=== PATIENT | female | born 1985 | race Two or more races ===

== ENCOUNTER → 2020-05-31 16:07 | Outpatient (BNVA) | payer MEDICAID, SELFPAY | PROVIDERS: PCP Internal Medicine Geriatric Medicine; Visit Provider Internal Medicine | DX: J45.909 Unspecified asthma, uncomplicated (principal) | CPT/HCPCS: 99212 ==

== ENCOUNTER → 2020-07-02 10:42 | Outpatient (BNVA) | payer MEDICAID, SELFPAY | PROVIDERS: PCP Internal Medicine Geriatric Medicine; Visit Provider Advanced Practice Midwife ==

== ENCOUNTER 2020-07-19 14:36 | Outpatient (REF) | payer MEDICAID, SELFPAY ==
--- NOTE | ~2020-07-19 | US_ITS ---
EXAMINATION: US PELVIS COMPLETE CLINICAL INFORMATION: Pelvic pain. Right lower quadrant pain. COMPARISON: None TECHNIQUE: Transabdominal and transvaginal ultrasound pelvis is performed. FINDINGS: The uterus is anteverted and retroflexed measuring 8.2 cm in length, 4.9 cm in AP and 5.7 cm in transverse dimension. The endometrial thickness is 0.9 cm. The uterus is heterogeneous in echotexture. IUD was removed 2 years ago. There are several anechoic nabothian cysts seen in the cervix. The right ovary measures 4.1 x 2.1 x 2.2 cm and volume 9.9 mL. There is a corpus luteal cyst measuring 1.5 x 2.1 x 1.9 cm. Previously, the right ovary measured 2.4 x 1.5 x 2.4 cm. The left ovary measures 4.4 x 2.0 x 1.7 cm and volume 7.4 mL. No echogenic foci are seen at this time. Previously, the left ovary measured 4.4 x 2.0 x 2.7 cm. There is moderate free fluid in the cul-de-sac. US/US transvaginal IMPRESSION: Heterogeneous but otherwise unremarkable uterus. Small nabothian cysts seen in the cervix. Right ovarian corpus luteal cyst. Moderate free fluid in the cul-de-sac.
--- NOTE | ~2020-07-19 | US_ITS ---
EXAMINATION: US PELVIS COMPLETE CLINICAL INFORMATION: Pelvic pain. Right lower quadrant pain. COMPARISON: None TECHNIQUE: Transabdominal and transvaginal ultrasound pelvis is performed. FINDINGS: The uterus is anteverted and retroflexed measuring 8.2 cm in length, 4.9 cm in AP and 5.7 cm in transverse dimension. The endometrial thickness is 0.9 cm. The uterus is heterogeneous in echotexture. IUD was removed 2 years ago. There are several anechoic nabothian cysts seen in the cervix. The right ovary measures 4.1 x 2.1 x 2.2 cm and volume 9.9 mL. There is a corpus luteal cyst measuring 1.5 x 2.1 x 1.9 cm. Previously, the right ovary measured 2.4 x 1.5 x 2.4 cm. The left ovary measures 4.4 x 2.0 x 1.7 cm and volume 7.4 mL. No echogenic foci are seen at this time. Previously, the left ovary measured 4.4 x 2.0 x 2.7 cm. There is moderate free fluid in the cul-de-sac. US/US pelvic complete IMPRESSION: Heterogeneous but otherwise unremarkable uterus. Small nabothian cysts seen in the cervix. Right ovarian corpus luteal cyst. Moderate free fluid in the cul-de-sac.
== END 2020-07-19 14:37 | disposition home or self-care (01) ==
LOC: HO.US 14:36
PROVIDERS: Visit Provider Advanced Practice Midwife
DX: R10.2 Pelvic and perineal pain (principal)
CPT/HCPCS: 76830; 76856

== ENCOUNTER → 2020-07-30 11:11 | Outpatient (BNVA) | payer MEDICAID, SELFPAY | PROVIDERS: Visit Provider Advanced Practice Midwife ==

== ENCOUNTER 2020-10-19 14:00 | Outpatient (RCR) | payer MEDICAID, SELFPAY | END 2020-10-26 08:00 | disposition home or self-care (01) | LOC: HO.PT 14:00 | PROVIDERS: PCP Internal Medicine Geriatric Medicine; Visit Provider Advanced Practice Midwife | DX: R10.2 Pelvic and perineal pain (principal); N94.10 Unspecified dyspareunia | CPT/HCPCS: 97110; 97140; 97162; 97530 ==

== ENCOUNTER → 2020-12-16 14:57 | Outpatient (BNVA) | payer MEDICAID, SELFPAY | PROVIDERS: PCP Internal Medicine Geriatric Medicine; Visit Provider Internal Medicine | DX: J45.909 Unspecified asthma, uncomplicated (principal) | CPT/HCPCS: 99212 ==

== ENCOUNTER → 2021-06-22 15:06 | Outpatient (BNVA) | payer MEDICAID, SELFPAY | PROVIDERS: PCP Internal Medicine Geriatric Medicine; Visit Provider Internal Medicine | DX: J45.909 Unspecified asthma, uncomplicated (principal) | CPT/HCPCS: 99212 ==

== ENCOUNTER 2021-07-11 09:31 | Outpatient (REF) | payer MEDICAID, SELFPAY ==
[2021-07-11 15:14] LABS: CT PCR NOT DETECTED (Not Detect.); NG PCR NOT DETECTED (Not Detect.)
[2021-07-11 16:22] LABS: BV Int Neg Control Negative (Negative); BV Int Pos Control Positive (Positive)
== END 2021-07-11 09:32 | disposition home or self-care (01) ==
LOC: HO.LAB 09:31
PROVIDERS: PCP Internal Medicine Geriatric Medicine; Visit Provider Advanced Practice Midwife
DX: R10.2 Pelvic and perineal pain (principal); N94.6 Dysmenorrhea, unspecified; Z20.2 Contact with and (suspected) exposure to infections with a predominantly sexual mode of transmission; R68.82 Decreased libido
CPT/HCPCS: 87480; 87491; 87510; 87591; 87660

== ENCOUNTER 2021-08-02 13:23 | Outpatient (REF) | payer MEDICAID, SELFPAY ==
--- NOTE | ~2021-08-02 | US_ITS ---
EXAMINATION: US PELVIS CLINICAL INFORMATION: Pelvic and perineal pain. COMPARISON: None TECHNIQUE: Ultrasound of the pelvis is performed using both transabdominal and transvaginal transducers along with Doppler. Transvaginal imaging is performed due to inadequate visualization transabdominally. FINDINGS: Uterus: The uterus is anteverted, retroflexed and measures 11.3 cm in length, 4.0 cm in AP, and 5.3 cm in transverse dimension. The double wall endometrial thickness is 0.8 cm. The uterus is limited in visualization due to positioning, however, the uterus appears smooth, homogeneous without focal lesion. There are several nabothian cysts seen. Adnexa: Both ovaries are visualized. There is normal color-flow to the adnexa. There is no ovarian torsion. There is no pelvic ascites or fluid collection. Right ovary measures 3.5 x 2.5 x 3.3 cm and volume 15.1 mL. There is an anechoic cyst measuring 2.9 x 1.8 x 2.3 cm. Left ovary measures 2.9 x 2.1 x 2.3 cm and volume 7.3 mL. [id number] amount of free fluid in the cul-de-sac. US/US pelvic and transvaginal IMPRESSION: Nabothian cysts in the cervix. Uterus with limited visualization but grossly unremarkable. Endometrial thickness is 0.8 cm. Simple cyst right ovary measuring 2.9 cm. Unremarkable left ovary. [id number] amount of free fluid in the cul-de-sac.
== END 2021-08-02 13:24 | disposition home or self-care (01) ==
LOC: HO.US 13:23
PROVIDERS: Visit Provider Advanced Practice Midwife
DX: R10.2 Pelvic and perineal pain (principal)
CPT/HCPCS: 76830; 76856

== ENCOUNTER → 2021-08-16 11:00 | Outpatient (BNVA) | payer MEDICAID, SELFPAY | PROVIDERS: PCP Internal Medicine Geriatric Medicine; Visit Provider Advanced Practice Midwife | DX: Z71.2 Person consulting for explanation of examination or test findings (principal); N83.299 Other ovarian cyst, unspecified side | CPT/HCPCS: 99212 ==

== ENCOUNTER → 2022-01-11 13:15 | Outpatient (BNVA) | payer MEDICAID, SELFPAY | PROVIDERS: PCP Internal Medicine Geriatric Medicine; Visit Provider Internal Medicine | DX: J45.20 Mild intermittent asthma, uncomplicated (principal); J30.9 Allergic rhinitis, unspecified | CPT/HCPCS: 99212 ==

== ENCOUNTER → 2022-07-12 13:27 | Outpatient (BNVA) | payer MEDICAID, SELFPAY | PROVIDERS: PCP Internal Medicine Geriatric Medicine; Visit Provider Internal Medicine | DX: J45.909 Unspecified asthma, uncomplicated (principal) | CPT/HCPCS: 99212 ==

== ENCOUNTER 2022-08-15 10:58 | Outpatient (REF) | payer MEDICAID, SELFPAY ==
[2022-08-16 10:34] LABS: CT PCR NOT DETECTED (Not Detect.); NG PCR NOT DETECTED (Not Detect.)
[2022-08-16 13:05] LABS: BV Int Neg Control Negative (Negative); BV Int Pos Control Positive (Positive)
[2022-08-19 08:54] LABS: HPV mRNA E6/E7 rflx Not Detected (Not Detected)
== END 2022-08-15 10:59 | disposition home or self-care (01) ==
LOC: HO.LNP 10:58
PROVIDERS: PCP Internal Medicine Geriatric Medicine; Visit Provider Advanced Practice Midwife
DX: Z01.419 Encounter for gynecological examination (general) (routine) without abnormal findings (principal); M79.7 Fibromyalgia; Z87.42 Personal history of other diseases of the female genital tract; Z79.899 Other long term (current) drug therapy
CPT/HCPCS: 0353U; 87480; 87510; 87624; 87660; 88142

== ENCOUNTER → 2022-08-25 10:12 | Outpatient (BNVA) | payer MEDICAID, SELFPAY | PROVIDERS: PCP Internal Medicine Geriatric Medicine; Visit Provider Student in an Organized Health Care Education/Training Program | DX: M79.7 Fibromyalgia (principal) | CPT/HCPCS: 99202 ==

== ENCOUNTER 2023-01-17 13:23 | Outpatient (AMB) | payer MEDICAID, SELFPAY ==
[2023-01-17 13:30] VITALS: BP 122/68; PULSE 86; O2SAT 96; BMI 30.1
--- NOTE | 2023-01-17 13:30 | A.OFFVIS_ITS ---
Intake Vital Signs 01/17/23 13:30 Height 5 ft 3 in Weight 170 lb BMI 30.1 BP 122/68 Blood Pressure Location Lt brachial Position Sitting Pulse 86 Pulse Source Pulse Oximeter Pulse Oximetry (%) 96 Oxygen Delivery Method Room Air Intake Visit Reasons: Asthma Intake Note: pt is here for follow up and states she is doing good, no asthma issue, just a l ot of allergies and stuffy nose Metal Cutter Required: No Allergies aspirin Allergy (Severe, Verified 01/17/23 13:41) hives penicillin V Allergy (Severe, Verified 01/17/23 13:41) anaphylaxis, anaphylaxis, rash vancomycin Allergy (Severe, Verified 01/17/23 13:41) anaphylaxis Medication List - Last Reconciled 01/17/23 by Sherice Martin MD albuterol sulfate 2.5 mg (3 mL) inhalation Q6H PRN albuterol sulfate 90 mcg/actuation (Ventolin HFA) 2 puffs inhalation Q4-6H PRN cetirizine (Zyrtec) 10 mg PO DAILY PRN cholecalciferol (vitamin D3) 25 mcg PO DAILY duloxetine (Cymbalta) 60 mg PO BID fluticasone propion-salmeterol 250-50 mcg/dose (Advair Diskus) 1 ea PO BID fluticasone propionate 50 mcg/actuation 2 sprays intranasal DAILY ipratropium bromide 2 sprays intranasal TID montelukast 10 mg PO BEDTIME norethindrone (contraceptive) 0.35 mg PO DAILY pregabalin 150 mg PO TID sumatriptan succinate 0 mg PO trazodone 50 mg PO BEDTIME PRN Do you need a note to return to daycare/school/sports/work: No HPI Asthma HPI Details 37 years old very pleasant female is here for her 6 months follow-up. She is afflicted with allergic rhinitis is around the year, with intermittent flare ups. With the current medical regimen it is somewhat under control. Also has chronic bronchial asthma, controlled with medium dose of Advair ( 250- 50 ) She has had no acute exacerbation. However if she does not use the Advair regularly then she starts having tight feeling in the chest and increased cough. [facility] Medical History Allergic rhinitis Asthma Migraine with aura Simple cystoma of ovary Surgical History Hx of section Social History Alcohol intake: never Patient Tobacco Use Status: Never used Tobacco Sexual orientation: Straight/Heterosexual Female Reproductive History Menstrual Age of Menarche: 13 Review of Systems Const All systems reviewed & are unremarkable except as noted in HPI and below Eyes Reports no additional complaints ENT Reports nasal congestion (Mild and controlled) Card Denies chest pain, Denies irregular heart rhythm and Denies leg edema Resp Reports as per HPI and Reports no additional complaints GI Reports no additional complaints Reports no additional complaints Musc Reports back pain and Reports arthralgias Skin/Breast Reports system reviewed and no additional complaints, except as documented Neuro Reports no additional complaints Psych Reports no additional complaints Endo Reports no additional complaints Leo/Lymph Reports no additional complaints Physical Exam Vital Signs: Last Vital Signs Pulse 86 01/17/23 13:30 BP 122/68 01/17/23 13:30 Pulse Ox 96 01/17/23 13:30 Oxygen Delivery Method Room Air 01/17/23 13:30 BMI result Body Mass Index 30.1 Const General: healthy appearing, comfortable, no acute distress, alert and awake Orientation/consciousness: patient oriented x3 HEENT Head: Yes normal to inspection General nose exam: No nasal polyps present, No nasal discharge present and Other nasal findings present (Only mild bilateral nasal congestion) Face and sinus: Yes sinuses nontender Mouth: oropharynx normal Throat: Yes posterior oropharynx normal Eyes General: appearance normal, both eyes and all related structures Neck Neck: Yes normal visual inspection, Yes no lymphadenopathy, Yes trachea midline and Yes no JVD Thyroid: Thyroid normal Chest Chest palpation & inspection: normal inspection of the chest, normal palpation of entire chest wall and no tenderness Resp Effort & Inspection: normal respiratory effort Auscultation: clear to auscultation bilaterally, no crackles and no wheezes Percussion: percussion normal Cardio Palpation: normal PMI Rate: regular rate Rhythm: regular rhythm Heart sounds: no gallops and no murmurs Peripheral pulses: Peripheral pulses 2+ throughout GI Palpation (GI): Soft to palpation, nontender, No hepatosplenomegaly present and no masses Auscultation: normal bowel sounds Back/Spine/Pelvis Thoracic/Lumbar Spine: thoracic and lumbar spine normal to inspection and thoraco-lumbar ROM limited Skin General skin exam: no rashes or lesions noted Neuro General: patient oriented x3 and no focal motor deficits Cranial nerves: Yes CN's II-XII intact bilaterally Extrem General: Yes normal to inspection, Yes no clubbing, cyanosis or edema, Yes no calf tenderness and Yes normal gait Psych Appearance: grossly normal and well kempt Speech and movement: Normal speech and movement present Assessment & Plan Assessment & Plan (1) Allergic rhinitis: Comment: She has chronic nasal allergies, around the year, worse in the summer months. At present she is having some flare of because she was out of meds. [place] : Continue Flonase 2 spray each nostril daily Zyrtec 10 mg once a day p.r.n. Montelukast 10 mg daily. Code(s): J30.9 - Allergic rhinitis, unspecified (2) Asthma: Comment: Chronic intermittent bronchial asthma well controlled, She does have history of seasonal flare up, mainly due to allergies. Seems well controlled with the current medical regimen. tx : Advair 250-50 1 inhalation b.i.d. Montelukast 10 mg daily Ventolin 2 puffs Q 6 hours p.r.n.. Code(s): J45.909 - Unspecified asthma, uncomplicated Coding Level of Care Code Est Pt Level 3 (62221) Diagnoses Allergic rhinitis J30.9 Asthma J45.909
== END 2023-01-17 13:48 | disposition home or self-care (01) ==
PROVIDERS: PCP Internal Medicine Geriatric Medicine; Visit Provider Internal Medicine
DX: J30.9 Allergic rhinitis, unspecified (principal); J45.909 Unspecified asthma, uncomplicated
CPT/HCPCS: 99213

== ENCOUNTER → 2023-01-17 13:23 | Outpatient (BNVA) | payer MEDICAID, SELFPAY | PROVIDERS: PCP Internal Medicine Geriatric Medicine; Visit Provider Internal Medicine | DX: J45.909 Unspecified asthma, uncomplicated (principal) | CPT/HCPCS: 99212 ==

== ENCOUNTER 2023-07-18 13:32 | Outpatient (AMB) | payer MEDICAID, SELFPAY ==
--- NOTE | 2023-07-18 13:35 | A.OFFVIS_ITS ---
Intake Vital Signs 07/18/23 13:37 Height 5 ft 3 in Weight 165 lb 5 oz BMI 29.3 BP 118/76 Blood Pressure Location Lt brachial Position Sitting Respiration 16 Pulse 78 Pulse Source Pulse Oximeter Pulse Oximetry (%) 98 Oxygen Delivery Method Room Air Intake Visit Reasons: Asthma Allergies aspirin Allergy (Severe, Verified 01/17/23 13:41) hives penicillin V Allergy (Severe, Verified 01/17/23 13:41) anaphylaxis, anaphylaxis, rash vancomycin Allergy (Severe, Verified 01/17/23 13:41) anaphylaxis Medication List - Last Reconciled 07/18/23 by Sherice Martin MD albuterol sulfate 2.5 mg (3 mL) inhalation Q6H PRN albuterol sulfate 90 mcg/actuation (Ventolin HFA) 2 puffs inhalation Q4-6H PRN cetirizine (Zyrtec) 10 mg PO DAILY PRN cholecalciferol (vitamin D3) 25 mcg PO DAILY duloxetine (Cymbalta) 60 mg PO BID fluticasone propion-salmeterol 250-50 mcg/dose (Advair Diskus) 1 ea PO BID fluticasone propionate 50 mcg/actuation 2 sprays intranasal DAILY ipratropium bromide 2 sprays intranasal TID montelukast 10 mg PO BEDTIME norethindrone (contraceptive) 0.35 mg PO DAILY pregabalin 150 mg PO TID sumatriptan succinate 0 mg PO trazodone 50 mg PO BEDTIME PRN Do you need a note to return to daycare/school/sports/work: No HPI Asthma HPI Details 38 years old female very pleasant, is a case of allergic rhinitis, around the year and also bronchial asthma. She does very well on her regular regimen but 2 or 3 times a year she does get flare ups when she needs a short course of prednisone. A few weeks ago she had to go to than urgent care with a flare up and she was treated with prednisone 20 mg a day for 5 days and got better. At present she has her usual mild nasal congestion. She has very little cough or wheezing. She is able to do her normal day-to-day activities without cough or wheezing. She would like to keep a short supply of prednisone on hand, so that she can bypass going to the ER or urgent care in case of acute exacerbation. [facility] Medical History Simple cystoma of ovary Migraine with aura Asthma Allergic rhinitis Surgical History Hx of section Social History Alcohol intake: never Patient Tobacco Use Status: Never used Tobacco Sexual orientation: Straight/Heterosexual Female Reproductive History Menstrual Age of Menarche: 13 Review of Systems Const All systems reviewed & are unremarkable except as noted in HPI and below Eyes Reports no additional complaints ENT Reports nasal congestion (Mild and controlled) Card Denies chest pain, Denies irregular heart rhythm and Denies leg edema Resp Reports as per HPI and Reports no additional complaints GI Reports no additional complaints Reports no additional complaints Musc Reports back pain and Reports arthralgias Skin/Breast Reports system reviewed and no additional complaints, except as documented Neuro Reports no additional complaints Psych Reports no additional complaints Endo Reports no additional complaints Leo/Lymph Reports no additional complaints Physical Exam Const General: healthy appearing, comfortable, no acute distress, alert and awake Orientation/consciousness: patient oriented x3 HEENT Head: Yes normal to inspection General nose exam: No nasal polyps present, No nasal discharge present and Other nasal findings present (Only mild bilateral nasal congestion) Face and sinus: Yes sinuses nontender Mouth: oropharynx normal Throat: Yes posterior oropharynx normal Eyes General: appearance normal, both eyes and all related structures Neck Neck: Yes normal visual inspection, Yes no lymphadenopathy, Yes trachea midline and Yes no JVD Thyroid: Thyroid normal Chest Chest palpation & inspection: normal inspection of the chest, normal palpation of entire chest wall and no tenderness Resp Effort & Inspection: normal respiratory effort Auscultation: clear to auscultation bilaterally, no crackles and no wheezes Percussion: percussion normal Cardio Palpation: normal PMI Rate: regular rate Rhythm: regular rhythm Heart sounds: no gallops and no murmurs Peripheral pulses: Peripheral pulses 2+ throughout GI Palpation (GI): Soft to palpation, nontender, No hepatosplenomegaly present and no masses Auscultation: normal bowel sounds Back/Spine/Pelvis Thoracic/Lumbar Spine: thoracic and lumbar spine normal to inspection and thoraco-lumbar ROM limited Skin General skin exam: no rashes or lesions noted Neuro General: patient oriented x3 and no focal motor deficits Cranial nerves: Yes CN's II-XII intact bilaterally Extrem General: Yes normal to inspection, Yes no clubbing, cyanosis or edema, Yes no calf tenderness and Yes normal gait Psych Appearance: grossly normal and well kempt Speech and movement: Normal speech and movement present Assessment & Plan Assessment & Plan (1) Allergic rhinitis: Comment: She has chronic nasal allergies, around the year, worse in the summer months. At present she is fairly stable . Code(s): J30.9 - Allergic rhinitis, unspecified Plan: [place] : Continue Flonase 2 spray each nostril daily Zyrtec 10 mg once a day p.r.n. Montelukast 10 mg daily. (2) Asthma: Comment: Chronic intermittent bronchial asthma well controlled, She does have history of seasonal flare up, mainly due to allergies. Seems well controlled with the current medical regimen. Code(s): J45.909 - Unspecified asthma, uncomplicated Plan: tx : Advair 250-50 1 inhalation b.i.d. Montelukast 10 mg daily Ventolin 2 puffs Q 6 hours p.r.n.. * Prednisone 10 mg bid x 5 days , Just keep on hand Coding Level of Care Code Est Pt Level 3 (89477) Diagnoses Allergic rhinitis J30.9 Asthma J45.909
[2023-07-18 13:37] VITALS: BP 118/76; PULSE 78; RESP 16; O2SAT 98; BMI 29.3
== END 2023-07-18 13:54 | disposition home or self-care (01) ==
PROVIDERS: PCP Internal Medicine Geriatric Medicine; Visit Provider Internal Medicine
DX: J30.9 Allergic rhinitis, unspecified (principal); J45.909 Unspecified asthma, uncomplicated
CPT/HCPCS: 99213

== ENCOUNTER → 2023-07-18 13:32 | Outpatient (BNVA) | payer MEDICAID, SELFPAY | PROVIDERS: PCP Internal Medicine Geriatric Medicine; Visit Provider Internal Medicine | DX: J45.909 Unspecified asthma, uncomplicated (principal) | CPT/HCPCS: 99212 ==

== ENCOUNTER 2023-08-22 11:15 | Outpatient (AMB) | payer MEDICAID, SELFPAY ==
[2023-08-22 11:31] VITALS: BP 116/70; BMI 31.0
--- NOTE | 2023-08-22 11:31 | MHC.OFFVIS ---
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 Revenue Director Required: No Information Interpreted: clinical only Substance Abuse Prevention Coordinator: Substance Abuse Prevention Coordinator Present Allergies aspirin Allergy (Severe, Verified 08/22/23 11:31) hives penicillin V Allergy (Severe, Verified 08/22/23 11:31) anaphylaxis, anaphylaxis, rash vancomycin Allergy (Severe, Verified 08/22/23 11:31) anaphylaxis Medication List - Last Reconciled 08/22/23 by Kenyetta Marquez CNM albuterol sulfate 2.5 mg (3 mL) inhalation Q6H PRN albuterol sulfate 90 mcg/actuation (Ventolin HFA) 2 puffs inhalation Q4-6H PRN cetirizine (Zyrtec) 10 mg PO DAILY PRN cholecalciferol (vitamin D3) 25 mcg PO DAILY duloxetine (Cymbalta) 60 mg PO BID fluticasone propion-salmeterol 250-50 mcg/dose (Advair Diskus) 1 ea PO BID fluticasone propionate 50 mcg/actuation 2 sprays intranasal DAILY ipratropium bromide 2 sprays intranasal TID montelukast 10 mg PO BEDTIME norethindrone (contraceptive) 0.35 mg PO DAILY pregabalin 150 mg PO TID sumatriptan succinate 0 mg PO trazodone 50 mg PO BEDTIME PRN Is last menstrual period known: Yes Last menstrual period: 08/04/23 Do you need a note to return to daycare/school/sports/work: No HPI 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 She never did stop the pills and she is pretty sure she never missed any pills either though she recounts that she did have a very heavy irregular weird. With heavy clots and lots of cramping last month additionally she had had bronchitis in June and was on antibiotics. She did not think she missed any pills and thought she was on point with that. However it along with that heavy unusual clotty crampy long. She also was somewhat nauseous had very very very tender breasts and just felt different and was thinking that maybe she had been and she was miscarrying. At this point in time she has not interested in but she does want to talk about issues with going forward and how late is too late and perimenopause. [facility] Medical History Simple cystoma of ovary Migraine with aura Asthma Allergic rhinitis Surgical History Hx of section Social History Alcohol intake: never Patient Tobacco Use Status: Never used Tobacco Sexual orientation: Straight/Heterosexual Female Reproductive History Menstrual Age of Menarche: 13 Duration of menses: 3-5 days Date of last menstrual period: 08/04/23 control method: pills Total pregnancies: 4 Full term: 2 Date of last pap smear: 08/16/22 (negative,previous pap 2018 wnl) History of abnormal pap smear: No Physical Exam Vital Signs: Last Vital Signs BP 116/70 08/22/23 11:31 BMI result Body Mass Index 31.0 Const General: healthy appearing, comfortable, no acute distress, well developed and alert Nutritional Appearance: average body habitus Orientation/consciousness: patient oriented x3 Limitations: no limitations HEENT Head: Yes normocephalic Neck Neck: Yes normal visual inspection Chest Chest palpation & inspection: normal inspection of the chest Breast/axilla inspection: normal inspection of the breasts and normal inspection of the axillae Breast/axilla palpation: normal palpation of the breasts and normal palpation of the axillae Resp Effort & Inspection: normal respiratory effort GI Inspection: Yes normal to inspection, No Abdominal wall edema and No distended Palpation (GI): Soft to palpation and nontender General: Yes bladder normal to palpation External Female Exam: normal external appearance and normal appearance of the urethra Speculum Exam - Vagina: normal appearance of the vagina, normal palpation and normal vaginal discharge Speculum Exam - Cervix: normal appearance of the cervix, normal palpation and nontender Bimanual exam- vagina & uterus: normal bimanual exam, normal palpation, uterine size normal, bladder normal to palpation, consistency normal, normal palpation, uterine mobility normal, uterine shape normal, No Cervical tenderness present, non-tender and no cervical motion tenderness Bimanual Exam- Adnexa, other: normal adnexae, no masses, normal and No adnexal tenderness Neuro General: patient oriented x3 Assessment & Plan Assessment & Plan (1) Hx of abnormal cervical Pap smear: Comment: 08/15/2022 Pap is negative with negative HPV Code(s): Z87.42 - Personal history of other diseases of the female genital tract (2) Surveillance for control, oral contraceptives: Code(s): Z30.41 - Encounter for surveillance of contraceptive pills (3) Well woman exam with routine gynecological exam: Code(s): Z01.419 - Encounter for gynecological examination (general) (routine) without abnormal findings Plan -----Discussed in this visit the following: healthy balanced diet, regular and consistent exercise, getting recommended health screens, doing the best she can for her particular health concerns, kegel exercises, pap smear screening and followup recommendations, mammography screening and SBE, normal changes in cycles in her life stage--- . Reviewed her taking of the pills reviewed that if she ever did decide to have a baby she would just need to stop the pills reviewed that the risk of defects does go up as 1 gets older and also the risks to her health as well. Because she had had 2 C sections she would need a 3rd but I would not be able to tell her if they would say no more babies after that or not she is still trying to think about it. Much of the discussion also was around a very unusual. That lasted for about 10 days and was very heavy and with blood clots and for 2 weeks earlier than she expected she absolutely denied any missed pills however she also in June had had bronchitis and was on antibiotics for a week and she also felt nauseous around the time her period Ended up coming and her breasts were very very tender and the thought did occur to her that maybe she was and having a miscarriage. Reviewed that we will never know at this point. She denies miss pills and wants to continue on the pills and reviewed that if she does decide to get she would just stop the pills and I also recommend she take a vitamin with folic acid in it. Orders: Orders Bacterial Vaginosis Panel Today Z20.2 - Contact with and (suspected) exposure to infections with a predominantly sexual mode of transmission CT NG by PCR Today Z01.419 - Encounter for gynecological examination (general) (routine) without abnormal findings Medications: Refilled norethindrone (contraceptive) 0.35 mg PO DAILY 84 tabs 4RF Coding Level of Care Code Est Pt Prev Care 18-39y(11157) Diagnoses Hx of abnormal cervical Pap smear Z87.42 Surveillance for control, oral contraceptives Z30.41 Well woman exam with routine gynecological exam Z01.419
== END 2023-08-22 12:37 | disposition home or self-care (01) ==
PROVIDERS: Visit Provider Advanced Practice Midwife
DX: Z87.42 Personal history of other diseases of the female genital tract (principal); Z30.41 Encounter for surveillance of contraceptive pills; Z01.419 Encounter for gynecological examination (general) (routine) without abnormal findings
CPT/HCPCS: 99395

== ENCOUNTER 2023-08-22 11:15 | Outpatient (REF) | payer MEDICAID, SELFPAY ==
[2023-08-23 06:19] LABS: CT PCR NOT DETECTED (Not Detect.); NG PCR NOT DETECTED (Not Detect.)
[2023-08-23 13:04] LABS: BV Int Neg Control Negative (Negative); BV Int Pos Control Positive (Positive)
== END 2023-08-22 11:16 | disposition home or self-care (01) ==
LOC: HO.LAB 11:15
PROVIDERS: Visit Provider Advanced Practice Midwife
DX: Z30.41 Encounter for surveillance of contraceptive pills (principal); Z20.2 Contact with and (suspected) exposure to infections with a predominantly sexual mode of transmission
CPT/HCPCS: 0353U; 87480; 87510; 87660; 99395

== ENCOUNTER 2024-01-16 13:43 | Outpatient (AMB) | payer MEDICAID, SELFPAY ==
--- NOTE | 2024-01-16 13:48 | MHC.OFFVIS ---
Vital Signs 01/16/24 13:49 Height 5 ft 3 in Weight 178 lb 9.191 oz BMI 31.6 BP 100/68 Blood Pressure Location Lt brachial Position Sitting Pulse 72 Pulse Source Pulse Oximeter Pulse Oximetry (%) 96 Oxygen Delivery Method Room Air Intake Visit Reasons: Asthma Intake Note: pt is here for follow up and states she is feeling okay today. Drill Sergeant Required: No Allergies aspirin Allergy (Severe, Verified 01/16/24 14:02) hives penicillin V Allergy (Severe, Verified 01/16/24 14:02) anaphylaxis, anaphylaxis, rash vancomycin Allergy (Severe, Verified 01/16/24 14:02) anaphylaxis Medication List - Last Reconciled 01/16/24 by Sherice Martin MD albuterol sulfate 90 mcg/actuation (Ventolin HFA) 2 puffs inhalation Q4-6H PRN albuterol sulfate 2.5 mg (3 mL) inhalation Q6H PRN cetirizine (Zyrtec) 10 mg PO DAILY PRN cholecalciferol (vitamin D3) 25 mcg PO DAILY duloxetine (Cymbalta) 60 mg PO BID fluticasone propion-salmeterol 250-50 mcg/dose (Advair Diskus) 1 ea PO BID fluticasone propionate 50 mcg/actuation 2 sprays intranasal DAILY ipratropium bromide 2 sprays intranasal TID montelukast 10 mg PO BEDTIME norethindrone (contraceptive) 0.35 mg PO DAILY pregabalin 150 mg PO TID sumatriptan succinate 0 mg PO trazodone 50 mg PO BEDTIME PRN Do you need a note to return to daycare/school/sports/work: No HPI HPI Asthma: Details: 38 years old very pleasant female comes for her 6 months follow-up. She is being treated for chronic allergic rhinitis/bronchial asthma. With her current medical regimen , her condition remains well controlled and stable. She has only occasional flare ups of nasal congestion and wheezing. Has not required any active treatment with prednisone in the last 6 months. She is nonsmoker, [facility] Medical History Simple cystoma of ovary Migraine with aura Asthma Allergic rhinitis Surgical History Hx of section Social History Alcohol intake: never Patient Tobacco Use Status: Never used Tobacco Sexual orientation: Straight/Heterosexual Female Reproductive History Menstrual Age of Menarche: 13 Review of Systems Const All systems reviewed & are unremarkable except as noted in HPI and below Eyes Reports no additional complaints ENT Reports nasal congestion (Mild and controlled) Card Denies chest pain, Denies irregular heart rhythm and Denies leg edema Resp Reports as per HPI and Reports no additional complaints GI Reports no additional complaints Reports no additional complaints Musc Reports back pain and Reports arthralgias Skin/Breast Reports system reviewed and no additional complaints, except as documented Neuro Reports no additional complaints Psych Reports no additional complaints Endo Reports no additional complaints Leo/Lymph Reports no additional complaints Physical Exam Vital Signs: Last Vital Signs Pulse 72 01/16/24 13:49 BP 100/68 01/16/24 13:49 Pulse Ox 96 01/16/24 13:49 Oxygen Delivery Method Room Air 01/16/24 13:49 BMI result Body Mass Index 31.6 Const General: healthy appearing, comfortable, no acute distress, alert and awake Orientation/consciousness: patient oriented x3 HEENT Head: Yes normal to inspection General nose exam: No nasal polyps present, No nasal discharge present and Other nasal findings present (Only mild bilateral nasal congestion) Face and sinus: Yes sinuses nontender Mouth: oropharynx normal Throat: Yes posterior oropharynx normal Eyes General: appearance normal, both eyes and all related structures Neck Neck: Yes normal visual inspection, Yes no lymphadenopathy, Yes trachea midline and Yes no JVD Thyroid: Thyroid normal Chest Chest palpation & inspection: normal inspection of the chest, normal palpation of entire chest wall and no tenderness Resp Effort & Inspection: normal respiratory effort Auscultation: clear to auscultation bilaterally, no crackles and no wheezes Percussion: percussion normal Cardio Palpation: normal PMI Rate: regular rate Rhythm: regular rhythm Heart sounds: no gallops and no murmurs Peripheral pulses: Peripheral pulses 2+ throughout GI Palpation (GI): Soft to palpation, nontender, No hepatosplenomegaly present and no masses Auscultation: normal bowel sounds Back/Spine/Pelvis Thoracic/Lumbar Spine: thoracic and lumbar spine normal to inspection and thoraco-lumbar ROM limited Skin General skin exam: no rashes or lesions noted Neuro General: patient oriented x3 and no focal motor deficits Cranial nerves: Yes CN's II-XII intact bilaterally Extrem General: Yes normal to inspection, Yes no clubbing, cyanosis or edema, Yes no calf tenderness and Yes normal gait Psych Appearance: grossly normal and well kempt Speech and movement: Normal speech and movement present Assessment & Plan Assessment & Plan (1) Allergic rhinitis: Comment: She has chronic nasal allergies, around the year, worse in the summer months. At present she is fairly stable . Code(s): J30.9 - Allergic rhinitis, unspecified Category: Medical Plan: Continue Flonase propionate -50 2 spray in each nostril daily Montelukast 10 mg daily Cetirizine 10 mg 1 tablet daily as needed (2) Asthma: Comment: Chronic intermittent bronchial asthma well controlled, She does have history of seasonal flare up, mainly due to allergies. Seems well controlled with the current medical regimen. No recent flare ups. Code(s): J45.909 - Unspecified asthma, uncomplicated Category: Medical Plan: Continue Advair Diskus 250-51 inhalation b.i.d. Montelukast 10 mg daily Albuterol solution 2.5 mg in the nebulizer Q 6 hours p.r.n. Or when outdoors use Ventolin HFA 2 puffs Q 4-6 hours p.r.n.. Coding Level of Care Code Est Pt Level 3 (88589) Diagnoses Allergic rhinitis J30.9 Asthma J45.909
[2024-01-16 13:49] VITALS: BP 100/68; PULSE 72; O2SAT 96; BMI 31.6
== END 2024-01-16 14:09 | disposition home or self-care (01) ==
PROVIDERS: PCP Internal Medicine Geriatric Medicine; Referring Provider Internal Medicine Geriatric Medicine; Visit Provider Internal Medicine
DX: J30.9 Allergic rhinitis, unspecified (principal); J45.909 Unspecified asthma, uncomplicated
CPT/HCPCS: 99213

== ENCOUNTER → 2024-01-16 13:43 | Outpatient (BNVA) | payer MEDICAID, SELFPAY | PROVIDERS: PCP Internal Medicine Geriatric Medicine; Visit Provider Internal Medicine | DX: J45.909 Unspecified asthma, uncomplicated (principal) | CPT/HCPCS: 99212 ==

== ENCOUNTER 2024-07-23 13:20 | Outpatient (AMB) | payer MEDICAID, SELFPAY ==
[2024-07-23 13:22] VITALS: BP 110/75; PULSE 85; O2SAT 97; BMI 31.2
--- NOTE | 2024-07-23 13:22 | A.OFFVIS_ITS ---
Vital Signs 07/23/24 13:22 Height 5 ft 3 in Weight 176 lb BMI 31.2 BP 110/75 Blood Pressure Location Lt brachial Position Sitting Pulse 85 Pulse Source Pulse Oximeter Pulse Oximetry (%) 97 Oxygen Delivery Method Room Air Intake Visit Reasons: Asthma Intake Note: pt is here for follow up and states she has been having a lot of pain in the left lung area in the back and is affected by movement/ and she has been using her nebulizer and had er visit for this and given prednisone. Allergies aspirin Allergy (Severe, Verified 07/23/24 13:28) hives penicillin V Allergy (Severe, Verified 07/23/24 13:28) anaphylaxis, anaphylaxis, rash vancomycin Allergy (Severe, Verified 07/23/24 13:28) anaphylaxis Medication List - Last Reconciled 07/23/24 by Sherice Martin MD albuterol sulfate 90 mcg/actuation (Ventolin HFA) 2 puffs PO Q4-6H PRN albuterol sulfate 2.5 mg (3 mL) inhalation Q6H PRN cetirizine (Zyrtec) 10 mg PO DAILY PRN cholecalciferol (vitamin D3) 25 mcg PO DAILY duloxetine (Cymbalta) 60 mg PO BID fluticasone propion-salmeterol 250-50 mcg/dose (Advair Diskus) 1 ea PO BID fluticasone propionate 50 mcg/actuation 2 sprays intranasal DAILY ipratropium bromide 2 sprays intranasal TID montelukast 10 mg PO BEDTIME norethindrone (contraceptive) 0.35 mg PO DAILY pregabalin 150 mg PO TID sumatriptan succinate 0 mg PO trazodone 50 mg PO BEDTIME PRN Do you need a note to return to daycare/school/sports/work: No HPI HPI Asthma: Details: THIS 39 YEARS OLD FEMALE WHO HAS BEEN FOLLOWED UP FOR MANY YEARS FOR ALLERGIC RHINITIS AND BRONCHIAL ASTHMA, COMES TODAY FOR HER ROUTINE FOLLOW-UP AFTER 6 MONTHS. JUST LAST WEEK SHE HAD AN EPISODE OF PAIN IN THE LEFT UPPER BACK, WHICH WAS WORSENED BY COUGH AND DEEP BREATHING. HOWEVER SHE DID NOT HAVE ANY SYMPTOMS OF DEFINITE RESPIRATORY INFECTION. SHE ENDED UP GOING TO THE URGENT CARE AT [facility], HAD A CHEST X- RAY WHICH WAS TOLD TO HER TO BE NORMAL. AND SHE AGAIN 2ND TIME HAD TO GO TO THE CLINIC AT [facility]. THIS TIME SHE WAS TREATED WITH A COURSE OF PREDNISONE AND ALSO ADVISED TO USE ALBUTEROL IN THE NEBULIZER MORE OFTEN. CURRENTLY SHE IS AT HER BASELINE., NO SHARP PAIN. IN THE BACK BUT HAS SOME RESIDUAL DISCOMFORT SHE HAS HER USUAL NASAL CONGESTION WHICH IS CONTROLLED WITH USE OF FLONASE. [facility] Medical History Simple cystoma of ovary Migraine with aura Asthma Allergic rhinitis Surgical History Hx of section Social History Alcohol intake: never Patient Tobacco Use Status: Never used Tobacco Sexual orientation: Straight/Heterosexual Female Reproductive History Menstrual Age of Menarche: 13 Review of Systems Const All systems reviewed & are unremarkable except as noted in HPI and below Eyes Reports no additional complaints ENT Reports nasal congestion (Mild and controlled) Card Denies chest pain, Denies irregular heart rhythm and Denies leg edema Resp Reports as per HPI and Reports no additional complaints GI Reports no additional complaints Reports no additional complaints Musc Reports back pain and Reports arthralgias Skin/Breast Reports system reviewed and no additional complaints, except as documented Neuro Reports no additional complaints Psych Reports no additional complaints Endo Reports no additional complaints Leo/Lymph Reports no additional complaints Physical Exam Vital Signs: Last Vital Signs Pulse 85 07/23/24 13:22 BP 110/75 07/23/24 13:22 Pulse Ox 97 07/23/24 13:22 Oxygen Delivery Method Room Air 07/23/24 13:22 BMI result Body Mass Index 31.2 Const General: healthy appearing, comfortable, no acute distress, alert and awake Orientation/consciousness: patient oriented x3 HEENT Head: Yes normal to inspection General nose exam: No nasal polyps present, No nasal discharge present and Other nasal findings present (Only mild bilateral nasal congestion) Face and sinus: Yes sinuses nontender Mouth: oropharynx normal Throat: Yes posterior oropharynx normal Eyes General: appearance normal, both eyes and all related structures Neck Neck: Yes normal visual inspection, Yes no lymphadenopathy, Yes trachea midline and Yes no JVD Thyroid: Thyroid normal Chest Chest palpation & inspection: normal inspection of the chest, normal palpation of entire chest wall and no tenderness Resp Effort & Inspection: normal respiratory effort Auscultation: clear to auscultation bilaterally, no crackles and no wheezes Percussion: percussion normal Cardio Palpation: normal PMI Rate: regular rate Rhythm: regular rhythm Heart sounds: no gallops and no murmurs Peripheral pulses: Peripheral pulses 2+ throughout GI Palpation (GI): Soft to palpation, nontender, No hepatosplenomegaly present and no masses Auscultation: normal bowel sounds Back/Spine/Pelvis Thoracic/Lumbar Spine: thoracic and lumbar spine normal to inspection and thoraco-lumbar ROM limited Skin General skin exam: no rashes or lesions noted Neuro General: patient oriented x3 and no focal motor deficits Cranial nerves: Yes CN's II-XII intact bilaterally Extrem General: Yes normal to inspection, Yes no clubbing, cyanosis or edema, Yes no calf tenderness and Yes normal gait Psych Appearance: grossly normal and well kempt Speech and movement: Normal speech and movement present Assessment & Plan Assessment & Plan (1) Asthma: Comment: Chronic intermittent bronchial asthma well controlled, She does have history of seasonal flare up, mainly due to allergies. Seems well controlled with the current medical regimen. She has recovered from a recent acute exacerbation, most likely secondary to viral bronchitis. At present her lungs are clear and she is back on her usual meds. Code(s): J45.909 - Unspecified asthma, uncomplicated Category: Medical Plan: Continue Advair 250-51 inhalation b.i.d.. Ventolin 2 puffs Q. 6 hours p.r.n.when outdoors And albuterol solution in the nebulizer Q 6 hours p.r.n. at home (2) Allergic rhinitis: Comment: She has chronic nasal allergies, around the year, worse in the summer months. At present she is fairly stable . Code(s): J30.9 - Allergic rhinitis, unspecified Category: Medical Plan: Continue to use Flonase-52 spray in each nostril daily And ipratropium bromide 2 spray each nostril t.i.d. p.r.n. Also continue montelukast 10 mg daily Coding Level of Care Code Est Pt Level 3 (70488) Diagnoses Asthma J45.909 Allergic rhinitis J30.9
--- OUTSIDE RECORDS SUMMARY | 2024-07-23 15:38 | XMS_ITS | Encounter Summary ---
Author Organization [facility] Address [address] [place] [address] 7 [place] [address] Care Team Providers Care Dehairing Machine Tender Name Role Phone Name, Miah ZUÑIGA Primary Care Provider [phone] Encounter Details Date Type Department Care Team (Late st Contact Info) Description 05/02/2022 Abstract [facility] [address] [place] [address] Jose Fuentes DDS [address] [place] [address] Social History Tobacco Use Types Packs/Day Years Used Date Smoking Tobacco: Never Assessed Comments Unknown Sex and Gender Information Value Date Recorded Sex Assigned at Female 03/13/2022 10:29 AM EDT Legal Sex Female 10:29 AM EDT Gender Identity Female 03/13/2022 10:29 AM EDT Sexual Orientation Straight 03/13/2022 10 :29 AM EDT documented as of this encounter Plan of Treatment Upcoming Encounters Date Type Department Care Team (Late st Contact Info) Description 09/30/2024 2:00 PM EDT Office Visit [facility] [address] [place] [address] Name, MD Miah [address] [place] [address] documented as of this encounter Visit Diagnoses Not on filedocumented in this encounter Care Teams Dehairing Machine Tender Relationship Specialty Start Date End Date Name, MD Miah [address] [place] [phone] PCP - General Family Medicine 02/25/16 documented as of this encounter
--- OUTSIDE RECORDS SUMMARY | 2024-07-23 15:38 | XMS_ITS | Encounter Summary ---
Author Organization [employer] Address [address] [place] [address] Care Team Providers Care Smoke And Flame Specialist Name Role Phone Name, Miha ZUÑIGA Primary Care Provider Reason for Visit * Reason Comments Med Refill Encounter Details Date Type Department Care Team ([facility] Contact Info) Description 05/13/2024 Refill [facility] [address] [place] [address] Izabella Haines MD [address] [place] [address] Social History Tobacco Use Types Packs/Day Years Used Date Smoking Tobacco: Never Smokeless Tobacco: Never Alcohol Use Standard Drinks/Week Comments Never 0 (1 standard drink = 0.6 oz pur e alcohol) Depression Answer Date Recorded Patient Health Questionnaire-9 Score 0 09/06/2023 Patient Health Questionnaire-9 Score 0 09/06/2023 Last PHQ-9: Questionnaire Data Not on file 0 09/06/2023 Housing Stability Answer Date Recorded What is your housing situation today? I have scott zamora 09/06/[address] you li ve. Do you have problems with any of the following? None of the above 09/06/2023 Food Insecurity Answer Date Recorded Within the past 12 months, y ou worried that your food would run out before you got money to buy more: Never True 09/06/2023 Within the past 12 months,th e food you bought just didn't last and you didn't have enough money to get more: Never True Transportation Answer Date Recorded In the past 12 months, has l ack of transportation kept you from medical appts, meetings, work or from getting things needed for daily living? No 09/06/2023 Utilities Answer Date Recorded In the past 12 months, has t he electric, gas, oil or water company threatened to shut off services in your home? No 09/06/2023 Depression Answer Date Recorded Patient Health Questionnaire-2 Score 0 09/06/2023 Comments Unknown Sex and Gender Information Value [...] Description 09/30/2024 2:00 PM EDT Office Visit [facility] [address] [place] [phone] Name, MD Miah [address] [place] [phone] documented as of this encounter Visit Diagnoses Not on filedocumented in this encounter Additional Health Concerns Assessment Noted Time PHQ-9 Depression Total Score: 0 09/06/19 24 9:21 AM EDT documented as of this encounter Care Teams Smoke And Flame Specialist Relationship Specialty Start Date End Date NameMiah MD [address] [place] [phone] PCP - General Family Medicine 02/25/16 documented as of this encounter
--- OUTSIDE RECORDS SUMMARY | 2024-07-23 15:38 | XMS_ITS | Encounter Summary ---
Author Organization [employer] Address [address] [facility] 7t [place] [address] Care Team Providers Care House Coordinator Name Role Phone Name, Miah ZUÑIGA Primary Care Provider [phone] Reason for Visit * Reason Comments Med Refill Encounter Details Date Type Department Care Team ([facility] st Contact Info) Description 02/20/2023 Refill [facility] [address] [place], [place] [phone] Name, MD Miah [address] [place] [address] Pain Social History Tobacco Use Types Packs/Day Years Used Date Smoking Tobacco: Never Smokeless Tobacco: Never Alcohol Use Standard Drinks/Week Comments Never 0 (1 standard drink = 0.6 oz pur e alcohol) Depression Answer Date Recorded Patient Health Questionnaire-9 Score 14 07/10/2022 Housing Stability Answer Date Recorded What is your housing situation today? I have scott zamora 02/18/[address] you li ve. Do you have problems with any of the following? None of the above 02/18/2023 Food Insecurity Answer Date Recorded Within the past 12 months, y ou worried that your food would run out before you got money to buy more: Never True 02/18/2023 Within the past 12 months,th e food you bought just didn't last and you didn't have enough money to get more: Never True 12/2022 Transportation Answer Date Recorded In the past 12 months, has l ack of transportation kept you from medical appts, meetings, work or from getting things needed for daily living? No 02/18/2023 Utilities Answer Date Recorded In the past 12 months, has t he electric, gas, oil or water company threatened to shut off services in your home? No 02/18/2023 Depression Answer Date Recorded Patient Health Questionnaire-2 Score 4 07/10/2022 Comments Unknown Sex and Gender Information Value [...] Description 09/30/2024 2:00 PM EDT Office Visit [facility] [address] [place] [phone] Name, MD Miah [address] [place] [phone] documented as of this encounter Visit Diagnoses Diagnosis Pain Generalized pain documented in this encounter Additional Health Concerns Assessment Noted Time PHQ-9 Depression Total Score: 14 023 11:25 AM EST documented as of this encounter Care Teams House Coordinator Relationship Specialty Start Date End Date Name, MD Miah [address] [place] [phone] PCP - General Family Medicine 02/25/16 documented as of this encounter
--- OUTSIDE RECORDS SUMMARY | 2024-07-23 15:38 | XMS_ITS | Encounter Summary ---
Author Organization [facility] Address [address] [place] [address] [address] [address] Care Team Providers Care Political Geographer Name Role Phone Name, Miah ZUÑIGA Primary Care Provider [phone] Reason for Visit * Reason Comments Med Refill Encounter Details Date Type Department Care Team ([facility] Contact Info) Description 11/22/2022 Refill [facility] [address] [place] [address] [phone] [facility] [address] [place] [address] Pain Social History Tobacco Use Types Packs/Day Years Used Date Smoking Tobacco: Never Smokeless Tobacco: Never Alcohol Use Standard Drinks/Week Comments Never 0 (1 standard drink = 0.6 oz pur e alcohol) Depression Answer Date Recorded Patient Health Questionnaire-9 Score 14 07/10/2022 Depression Answer Date Recorded Patient Health Questionnaire-2 [...] Encounters Date Type Department Care Team (Late Contact Info) Description 09/30/2024 2:00 PM EDT Office Visit [facility] [address] [place] [phone] Name, MD Miah [address] [place], [place] [phone] documented as of this encounter Visit Diagnoses Diagnosis Pain Generalized pain documented in this encounter Additional Health Concerns Assessment Noted Time PHQ-9 Depression Total Score: 14 023 11:25 AM EST documented as of this encounter Care Teams Political Geographer Relationship Specialty Start Date End Date Name, MD Miah [address] [place] [address] PCP - General Family Medicine 02/25/16 documented as of this encounter
--- OUTSIDE RECORDS SUMMARY | 2024-07-23 15:38 | XMS_ITS | Encounter Summary ---
Author Organization [employer] Address [address] [facility] [address]t [place] [address] Care Team Providers Care Concrete Pouring Supervisor Name Role Phone Name, Miah ZUÑIGA Primary Care Provider [phone] Reason for Visit * Reason Comments Med Refill Encounter Details Date Type Department Care Team ([facility] st Contact Info) Description 06/16/2024 Refill [facility] [address] [place], [place] [phone] Name, MD Miah [address] [place] [address] Other chronic pain Social History Tobacco Use Types Packs/Day Years [...] Description 09/30/2024 2:00 PM EDT Office Visit [facility] [address] [place] [phone] Name, MD Miah [address] [place] [phone] documented as of this encounter Visit Diagnoses Diagnosis Other chronic pain documented in this encounter Additional Health Concerns Assessment Noted Time PHQ-9 Depression Total Score: 0 09/06/19 24 9:21 AM EDT documented as of this encounter Care Teams Concrete Pouring Supervisor Relationship Specialty Start Date End Date NameMiah MD [address] [place] [phone] PCP - General Family Medicine 02/25/16 documented as of this encounter
--- OUTSIDE RECORDS SUMMARY | 2024-07-23 15:38 | XMS_ITS | Encounter Summary ---
Author Organization [employer] Address [address] [facility] [address]t [place] [address] Care Team Providers Care Trimmer Buffing Wheel Name Role Phone Name, Miah ZUÑIGA Primary Care Provider [phone] Reason for Visit * Reason Onset Date Comments august recalls 07/08/2024 Encounter Details Date Type Department Care Team (Late st Contact Info) Description 07/08/2024 Telephone [facility] [address] [place] [address] [place] august recalls Social History Tobacco Use Types Packs/Day Years [...] AM EDT documented as of this encounter Miscellaneous Notes * Telephone Encounter - Ronald Lopez [place] - 07/08/2024 1:56 PM EST Telephone call to patient to schedule the following recall: Visit type: Physical Appointment notes: Physical Patient agree to appointment on 09/30/24 at 2 PM with Name. documented in this encounter Plan of Treatment Upcoming Encounters Date Type Department Care Team (Late st Contact Info) Description 09/30/2024 2:00 PM EDT Office Visit [facility] [address] [place] [address] NameMiah MD [address] [place] [address] documented as of this encounter Visit Diagnoses Not on filedocumented in this encounter Additional Health Concerns Assessment Noted Time PHQ-9 Depression Total Score: 0 09/06/19 24 9:21 AM EDT documented as of this encounter Care Teams Trimmer Buffing Wheel Relationship Specialty Start Date End Date NameMiah MD [address] [place] [address] PCP - General Family Medicine 02/25/16 documented as of this encounter
--- OUTSIDE RECORDS SUMMARY | 2024-07-23 15:39 | XMS_ITS | Encounter Summary ---
Author Organization [employer] Address 75 [facility] 7t [place] [address] Care Team Providers Care Railroad Operating Engineer Name Role Phone Name, Miah ZUÑIGA Primary Care Provider Reason for Visit * Reason Onset Date Comments Med Refill 01/15/2024 Encounter Details Date Type Department Care Team (Late st Contact Info) Description 01/15/[address] [facility] [address] [place], [place] [phone] Name, MD Miah [address] [place] [address] Other chronic pain Social History Tobacco Use [...] Description 09/30/2024 2:00 PM EDT Office Visit [facility] [address] [place] [address] Name, MD Miah [address] [place] [address] documented as of this encounter Visit Diagnoses Diagnosis Other chronic pain documented in this encounter Additional Health Concerns Assessment Noted Time PHQ-9 Depression Total Score: 0 09/06/19 24 9:21 AM EDT documented as of this encounter Care Teams Railroad Operating Engineer Relationship Specialty Start Date End Date NameMiah MD [address] [place] [address] PCP - General Family Medicine 02/25/16 documented as of this encounter
--- OUTSIDE RECORDS SUMMARY | 2024-07-23 15:39 | XMS_ITS | Clinical Summary ---
Author Organization [employer] Address 75 [facility] 7t [place] [address] Care Team Providers Care Resource Paraprofessional Name Role Phone Name, Miah ZUÑIGA Primary Care Provider [phone] Allergies Active Allergy Reactions Criticality Noted Date Comments Aspirin 10/10/2016 Other reaction(s): Rash Penicillins 05/10/2015 Other reaction(s): Unknown Vancomycin 10/10/2016 Medications norethindrone (Micronor) 0.35 MG tablet Take 1 tablet by mouth in the morning. 08/16/19 23 Active Vitamin D3 25 MCG (1000 UT) chewable tabletIndicati ons:Vitamin D deficiency CHEW/DISSOLVE 1 TABLET BY MOUTH EVERY DAY IN THE MORNING 90 tablet 3 07/19/19 24 Active Ventolin HFA 108 (90 Base) MCG/ACT inhaler INHALE 2 PUFF EVERY 4 TO 6 HOURS NEEDED FOR FOR WHEEZING 08/03/19 24 Active Advair Diskus 250-50 MCG/ACT aerosol powder Inhale 1 Dose 2 times daily. rinse mouth after use 08/03/19 24 Active montelukast (Singulair) 10 MG tablet Take 10 mg by mouth at bedtime. Active hydrocortisone 2.5 % cream APPLY 1 APPLICATION BY TOPICAL ROUTE 2 TIMES EVERY DAY 28 g 5 02/18/20 24 Active SUMAtriptan (Imitrex) 25 MG tabletIndicati ons:Pain TAKE 1 TABLET AT ONSET OF MIGRAINE, MAY REPEAT IN 2 HOURS IF NEEDED. MAX 8 TABS/24 HOURS 10 tablet 2 05/01/20 24 Active ipratropium (Atrovent) 0.06 % nasal sprayIndicatio ns:Other chronic pain SPRAY 2 SPRAYS INTO EACH NOSTRIL 3 TIMES A DAY 15 mL 1 05/01/20 24 Active DULoxetine (Cymbalta) [address] capsule TAKE 1 CAPSULE BY MOUTH EVERY DAY 30 capsule 5 06/16/19 25 Active traZODone (Desyrel) 50 MG tabletIndicati ons:Fibromyalg ia,Mixed anxiety and depressive disorder TAKE 1 TABLET BY MOUTH EVERYDAY AT BEDTIME 30 tablet 3 07/15/19 25 Active ketoconazole (NIZOral) 2 % shampooIndicat ions:Seborrhei c dermatitis USE DAILY AND LATHER ONTO AFFECTED AREA(S), LEAVE IN PLACE FOR 5 MINUTES, THEN RINSE OFF WITH WATER 120 mL 3 07/15/19 25 Active cyclobenzaprin e (Flexeril) 10 MG tabletIndicati ons:Fibromyalg ia TAKE 1 TABLET BY MOUTH IN THE MORNING, NOON AND BEDTIME NEEDED FOR MUSCLE SPASM 90 tablet 07/18/19 25 Active pregabalin (Lyrica) 150 MG capsuleIndicat ions:Other chronic pain TAKE 1 CAPSULE BY MOUTH THREE TIMES A DAY 90 capsule 07/18/19 25 Active traZODone (Desyrel) 50 MG tabletIndicati ons:Fibromyalg ia,Mixed anxiety and depressive disorder TAKE 1 TABLET BY MOUTH EVERYDAY AT BEDTIME 30 tablet 3 03/20/20 24 025 Discontinued ketoconazole (NIZOral) 2 % shampooIndicat ions:Seborrhei c dermatitis USE DAILY AND LATHER ONTO AFFECTED AREA(S), LEAVE IN PLACE FOR 5 MINUTES, THEN RINSE OFF WITH WATER 120 mL 3 03/20/20 24 025 Discontinued cyclobenzaprin e (Flexeril) 10 MG tabletIndicati ons:Fibromyalg ia TAKE 1 TABLET BY MOUTH IN THE MORNING, NOON AND BEDTIME NEEDED FOR MUSCLE SPASM 90 tablet 06/17/19 25 025 Discontinued pregabalin (Lyrica) 150 MG capsuleIndicat ions:Other chronic pain TAKE 1 CAPSULE BY MOUTH THREE TIMES A DAY 90 capsule 06/17/19 25 025 Discontinued Active Problems Problem Noted Date Diagnosed Date Mixed anxiety and depressive disorder 07/10/2022 Vitamin D deficiency 06/06/2019 Fibromyalgia 06/04/2017 Migraine 06/04/2017 Carpal tunnel syndrome 06/05/2016 Asthma 05/10/2015 Resolved Problems Problem Noted Date Diagnosed Date Resolved Date Numbness of upper limb 03/06/201609/05 Hand muscle weakness 03/06/2016 024 Encounters Date Type Department Care Team Description 07/16/2024 Refill [facility] [address] [place] [address] Miah Albarran MD Fibromyalgia; Other chronic pain 07/14/2024 Refill [facility] [address] [place] [address] Miah Albarran MD Fibromyalgia; Mixed anxiety and depressive disorder; Seborrheic dermatitis 07/08/2024 Telephone [facility] [address] [place] [address] Ronald Lopez [place] august recalls 06/16/2024 Refill [facility] [address] [place] [address] Miah Albarran MD Other chronic pain 06/16/2024 Refill [facility] [address] [place] [address] Miah Albarran MD Fibromyalgia; Other chronic pain 06/15/2024 Refill [facility] [address] [place] [address] Miah Albarran MD 05/15/2024 Refill [facility] [address] [place] [address] Miah Albarran MD Fibromyalgia 05/13/2024 Refill [facility] [address] [place] [address] Izabella [place] MD 05/01/2024 Refill [facility] [address] [place] [address] Miah Albarran MD Pain; Other chronic pain from Last 3 Months Immunizations Name Administration Dates Next Due Pneumococcal Conjugate PCV 20 09/06/2023 Pneumococcal Polysaccharide PPSV23 06/04/2017 TD (adult), 2 Lf tetanus tox oid, preservative free, adsorbed 10/22/2010 Tdap 08/17/2021,11/23/2014 Family History Medical History Relation Name Comments Lung cancer Maternal Grandfather Lung cancer Maternal Grandmother Relation Name Status Comments Maternal Grandfather Maternal Grandmother Social History Tobacco Use Types Packs/Day Years Used Date Smoking Tobacco: Never Smokeless Tobacco: Never Tobacco Cessation:Counseling Given: Not Answered Alcohol Use Standard Drinks/Week Comments Never 0 [...] Orientation Straight 03/13/2022 10 :29 AM EDT Last Filed Vital Signs Vital Sign Reading Time Taken Comments Blood Pressure 137/79 04/21/2024 1:23 PM EST Pulse 92 04/21/2024 1:23 PM EST Temperature 36.4 ??C (97.5 ??F) 04/21/2024 1:23 PM ES T Respiratory Rate 18 04/21/2024 1:23 PM EST Oxygen Saturation 95% 04/21/2024 1:23 PM EST 95-97%RA Inhaled Oxygen Concentration - - Weight 79.3 kg (174 lb 12.8 oz) 09/06/2023 9:19 AM EDT Height 160 cm (5' 3 ) 09/06/2023 9:19 AM EDT Body Mass Index 30.96 09/06/2023 9:19 AM EDT Plan of Treatment Upcoming Encounters Date Type Department Care Team (Late st Contact Info) Description 09/30/2024 2:00 PM EDT Office Visit [facility] [address] [place] [address] Name, MD Miah [address] [place] [address] Health Maintenance Due Date Last Done Comments Dental Prophylaxis 1985 Alcohol/Substance Use Screening 1998 Family Planning (PISQ) 2001 Hepatitis B Vaccines (1 of 3 - 19+ 3-dose series) 2005 Dental Oral Exam 04/13/2017 10/10/2016 Dental X-Ray: Bitewings 10/11/2017 10/10/2016 COVID-19 Vaccine (3 - 2023-2 5 season) 2024 10/25/2020, 09/27/2020 Influenza Vaccine (#1) 2024 Depression Screening 09/05/2024 09/06/2023, 09/06/2023 SDOH Screening 09/05/2024 09/06/2023 Tobacco Screening 09/05/2024 09/06/2023 Dental X-Ray: Full Mouth 04/13/2025 022, 10/10/2016 Pap Smear 08/15/2025 08/15/2022 Cervical Cancer Screening 08/16/2027 HPV/Cotest 08/16/2027 08/15/2022 DTaP/Tdap/Td Vaccines (3 - T d or Tdap) 08/18/2031 08/17/2021, 11/23/2014, 10/22/2010 Zoster Vaccines (1 of 2) 2036 RSV Patients and Patients Aged 60 years or older (1 - 1-dose 75+ series) 2061 HIV Screening Completed 06/12/2019 Hepatitis C Screening Completed 06/12/2019 Pneumococcal Vaccine: Pediatrics (0 to 5 Years) and At-Risk Patients (6 to 49) Years) Completed 09/06/2023, 06/04/2017 HIB Vaccines Aged Out No longer eligi ble based on patient's age to complete this topic HPV Vaccines Aged Out No longer eligi ble based on patient's age to complete this topic Hepatitis A Vaccines Aged Out No long er eligible based on patient's age to complete this topic IPV Vaccines Aged Out No longer eligi ble based on patient's age to complete this topic Meningococcal Vaccine Aged Out No christiano renetta eligible based on patient's age to complete this topic RSV under 20 months Aged Out No longe r eligible based on patient's age to complete this topic Rotavirus Vaccines Aged Out No longer eligible based on patient's age to complete this topic Procedures Procedure Name Priority Date/Time Associated Diagnosis Comments HPV MRNA E6/E7 REFLEX TO HPV 16, 18/45 Routine 08/15/2022 11:57 AM EDT PAP SMEAR Routine 08/15/2022 11:57 AM EDT PANORAMIC RADIOGRAPHIC IMAGE Routine 04/12/2022 12:00 AM EST [facility] HISTORICAL HEPATITIS C ANTIBODY Routine 06/12/2019 12:40 PM EST [facility] HISTORICAL HIV AB/AG Routine 06/12/2019 12:40 PM EST INTRAORAL - COMPLETE SERIES OF RADIOGRAPHIC IMAGES Routine 10/10/2016 12:00 AM EDT COMPREHENSIVE ORAL EVALUATION - NEW OR ESTABLISHED PATIENT Routine 10/10/2016 12:00 AM EDT from Last 3 Months or Most Recently Relevant to Health Maintenance Results * HPV mRNA E6/E7 w/Reflex to HPV Genotypes 16, 18/45 (08/15/2022 11:57 AM EDT) HPV nRNA E6/E7 Not Detected Not Detected [facility] Comment:Methodology: Transcr iption-Mediated AmplificationThis assay detects E6/E7 viral messenger RNA (mRNA) from 14high-risk HPV types (16,18,31,33,35,39,45,51,52,56,58,59,66,68).Cervical sources are required for HPV testing.If a vaginal source from a patient who has had atotal hysterectomy with removal of cervix wassubmitted, please contact the testing laboratoryfor alternative testing options.For additional information, please refer tohttp://education.[employer]/faq/QKG368t1(This link if provided for information/educational purposes only.)THIS TEST WAS PERFORMED AT:[employer] [place] [phone] SEVILLA MD HPV mRNA E6/E7 TNP [facility] HPV 16 RNA TNP [facility] HPV 18/45 RNA TNP [facility] 08/15/2022 11:5 7 AM EDT 08/16/2022 3:45 PM EDT [facility] External Provider LAB CYT OLOGY ORDERABLES Final Result Performing Organization Address City/State/[facility] Co de Phone Number [facility] [address] [place] [address] [phone] * Pap Smear (08/15/2022 11:57 AM EDT) 08/15/2022 11:5 7 AM EDT 08/16/2022 3:45 PM EDT Narrative [facility] - 08/21/2022 2:39 PM EDT ----- ------- Name: eDdra Rojo ? Age/Sex: 37/F ? : 1985 Unit#: [id number] ?? Attend Dr: Kenyetta Marquez CNM ?Re08/15/22 ?Status: DEP REF ? Location: HO.LNP ?Disch: ? ----- ------- SPEC : [id number] ? RECD: 08/16/22 ? STATUS: ??SOUT ? REQ NUM: [id number] ? MARYAM: 08/15/22-1156 ? SUBM DR: Kenyetta Marquez CNM ? ENTERED: ??08/16/22 ?SP TYPE: Pap Smr ?OTHR : Miah Albarran MD ? ORDERED: ??Pap Smear ? Interpretation ?? Satisfactory for evaluation. ?? Negative for intraepithelial lesion or malignancy. ? HPV mRNA E6/E7: ?NOT DETECTED ? This assay detects E6/E7 viral messenger RNA (mRNA) from 14 high-risk HPV types (16, 18, ?? 31, 33, 35, 39, 45, 51, 52, 56, 58, 59, 66, 68) ? HPV testing performed by [employer] [place]. ??See reference laboratory ?? portion of the EMR for entire report. ?Clinical Information LMP: 08/06/22 Previous PAP test: 02/12/18, WNL ? Material Received ?? ThinPrep-Cervical Copies To: ?? Name,Miah ZUÑIGA ?? [address] [facility] ?? [place] [address] ?? [phone] ?? Kenyetta Marquez CNM ?? [address] [place] [facility] ?? [place] [address] ?? [phone] ----- ------- Signed (signature on file) Geri Eldridge Bridger 08/21/22 0759 ? ----- ------- ? END OF REPORT ? [facility] External Provider LAB CYT OLOGY ORDERABLES Final Result [facility] [address] [place] [phone] * HEPATITIS C ANTIBODY (06/12/2019 12:40 PM EST) HEPATITIS C ANTIBODY [facility] Comment: Antibodies to HCV not detected; does not exclude early acute HCV infection. 06/12/2019 12:4 0 PM EST Historical Provider HISTORICAL/NON ORDERABLE LABS Final Result Performing Organization Address [facility] Number [facility] [address] * HIV AB/AG (06/12/2019 12:40 PM EST) Pathologist [facility] HIV AG/AB NONREACTIVE NR [facility] Comment: HIV-1 p24 Ag and/or HIV-1/HIV-2 Ab not detected. ?? A test result that is nonreactive does not exclude the possibility of exposure to or infection with HIV-1 and/or HIV-2. Nonreactive results in this assay for individuals with prior exposure to HIV-1 and/or HIV-2 may be due to antigen and antibody levels that are below the limit of detection of this assay. ?? The [employer] Senior Portfolio Analyst HIV Ag/Ab Combo assay result and supplemental assay results should be interpreted in conjunction with the patient's clinical presentation, history and other laboratory results. ??If the results are inconsistent with clinical evidence, additional testing is suggested to confirm the result. 06/12/2019 12:4 0 PM EST Historical Provider HISTORICAL/NON ORDERABLE LABS Final Result Performing Organization Address [facility] Number [facility] [address] from Last 3 Months or Most Recently Relevant to Health Maintenance Insurance [facility] C[place] AD[place] Care Teams Resource Paraprofessional Relationship Specialty Start Date End Date Name, MD Miah [address] [place] [address] PCP - General Family Medicine 02/25/16
--- OUTSIDE RECORDS SUMMARY | 2024-07-23 15:39 | XMS_ITS | Encounter Summary ---
Author Organization [employer] Address [address] [facility] [address] 7t [place] [address] Care Team Providers Care Automotive Worker Foreman Name Role Phone Name, Miah ZUÑIGA Primary Care Provider [phone] Reason for Visit * Reason Comments Med Refill Encounter Details Date Type Department Care Team ([facility] Contact Info) Description 08/03/2023 Refill [facility] [address] [place] [address] Izabella Haines MD [address] [place] [address] Social History Tobacco Use Types Packs/Day Years Used Date Smoking Tobacco: Never Smokeless Tobacco: Never Alcohol Use Standard Drinks/Week Comments Never 0 (1 standard drink = 0.6 oz pur e alcohol) Depression Answer Date Recorded Patient Health Questionnaire-9 Score 14 07/10/2022 Housing Stability Answer Date Recorded What is your housing situation today? I have scott zamora 02/28/[address] you li ve. Do you have problems with any of the following? None of the above 02/28/2023 Food Insecurity Answer Date Recorded Within the past 12 months, y ou worried that your food would run out before you got money to buy more: Never True 02/28/2023 Within the past 12 months,th e food you bought just didn't last and you didn't have enough money to get more: Never True Transportation Answer Date Recorded In the past 12 months, has l ack of transportation kept you from medical appts, meetings, work or from getting things needed for daily living? No 02/28/2023 Utilities Answer Date Recorded In the past 12 months, has t he electric, gas, oil or water company threatened to shut off services in your home? No 02/28/2023 Depression Answer Date Recorded Patient Health Questionnaire-2 [...] Description 09/30/2024 2:00 PM EDT Office Visit [facility] [address] [place] [address] Name, MD Miah [address] [place] [address] documented as of this encounter Visit Diagnoses Not on filedocumented in this encounter Additional Health Concerns Assessment Noted Time PHQ-9 Depression Total Score: 14 023 11:25 AM EST documented as of this encounter Care Teams Automotive Worker Foreman Relationship Specialty Start Date End Date Name, MD Miah [address] [place] [address] PCP - General Family Medicine 02/25/16 documented as of this encounter
--- OUTSIDE RECORDS SUMMARY | 2024-07-23 15:39 | XMS_ITS | Encounter Summary ---
Author Organization [employer] Address 75 [facility] 7t [place] [address] Care Team Providers Care Progress Clerk Name Role Phone Name, Miah ZUÑIGA Primary Care Provider [phone] Reason for Visit * Reason Comments Med Refill Encounter Details Date Type Department Care Team ([facility] st Contact Info) Description 07/14/2024 Refill [facility] [address] [place], [place] [phone] Name, MD Miah [address] [place] [address] Fibromyalgia; Mixed anxiety and depressive disorder; Seborrheic dermatitis Social History Tobacco Use Types Packs/Day Years [...] Description 09/30/2024 2:00 PM EDT Office Visit [facility] [address] [place] [address] Name, MD Miah [address] [place] [address] documented as of this encounter Visit Diagnoses Diagnosis Fibromyalgia Unspecified myalgia and myositis Mixed anxiety and depressive disorder Dysthymic disorder Seborrheic dermatitis Unspecified seborrheic dermatitis documented in this encounter Additional Health Concerns Assessment Noted Time PHQ-9 Depression Total Score: 0 09/06/19 24 9:21 AM EDT documented as of this encounter Care Teams Progress Clerk Relationship Specialty Start Date End Date Name, MD Miah [address] [place] [phone] PCP - General Family Medicine 02/25/16 documented as of this encounter
--- OUTSIDE RECORDS SUMMARY | 2024-07-23 15:39 | XMS_ITS | Encounter Summary ---
Author Organization [employer] [facility] Address [address] [place] [address] [address] [place] [address] Care Team Providers Care 3Rd Mate Name Role Phone Name, Miah ZUÑIGA Primary Care Provider [phone] Encounter Details Date Type Department Care Team (Late st Contact Info) Description 07/04/2022 Orders Only [facility] [address] [place], [place] [phone] Edita Vee LPN Social History Tobacco Use Types Packs/Day Years [...] Description 09/30/2024 2:00 PM EDT Office Visit [facility] [address] [place] [address] Miah Albarran MD [address] [place] [address] documented as of this encounter Visit Diagnoses Not on filedocumented in this encounter Care Teams 3Rd Mate Relationship Specialty Start Date End Date Miah Albarran MD [address] [place] [address] PCP - General Family Medicine 02/25/16 documented as of this encounter
--- OUTSIDE RECORDS SUMMARY | 2024-07-23 15:39 | XMS_ITS | Encounter Summary ---
Author Organization [employer] [facility] Address [address] [place] [address] 7 [place] [address] Care Team Providers Care Bowling Alley Floors Installer Name Role Phone Name, Miah ZUÑIGA Primary Care Provider [phone] Encounter Details Date Type Department Care Team (Late st Contact Info) Description 06/21/2022 Orders Only [facility] [address] [place] [address] Eliz Mendoza LPN Social History Tobacco Use Types Packs/Day [...] Description 09/30/2024 2:00 PM EDT Office Visit [facility] [address] [place] [address] Miah Albarran MD [address] [place] [address] documented as of this encounter Visit Diagnoses Not on filedocumented in this encounter Care Teams Bowling Alley Floors Installer Relationship Specialty Start Date End Date Miah Albarran MD [address] [place] [address] PCP - General Family Medicine 02/25/16 documented as of this encounter
--- OUTSIDE RECORDS SUMMARY | 2024-07-23 15:39 | XMS_ITS | Encounter Summary ---
Author Organization [employer] Address [address] [place] [address] 7t [place] [address] Care Team Providers Care Industrial Court Magistrate Name Role Phone Name, Miah ZUÑIGA Primary Care Provider [phone] Encounter Details Date Type Department Care Team (Late Contact Info) Description 08/01/2022 Orders Only [facility] [address] [place], [place] [phone] Edita Vee LPN Social History Tobacco Use Types Packs/Day Years Used Date Smoking Tobacco: Never Smokeless Tobacco: Never Depression Answer Date Recorded Patient Health Questionnaire-9 Score 14 07/10/2022 Depression Answer Date Recorded Patient Health Questionnaire-2 Score 4 07/10/2022 Comments Unknown Sex and Gender Information Value Date Recorded Sex Assigned at Female 03/13/2022 10:29 AM EDT Legal Sex Female 10:29 AM EDT Gender Identity Female 03/13/2022 10:29 AM EDT Sexual Orientation Straight 03/13/2022 10 :29 AM EDT COVID-19 Exposure Response Date Recorded In the last 10 days, have yo u been in contact with someone who was confirmed or suspected to have Coronavirus/COVID-19? No / Unsure 07/09/2022 11:32 PM EST documented as of this encounter Plan of Treatment Upcoming Encounters Date Type Department Care Team (Late Contact Info) Description 09/30/2024 2:00 PM EDT Office Visit [facility] [address] [place], [place] [phone] Name, MD Miah [address] [place], [place] [phone] documented as of this encounter Visit Diagnoses Not on filedocumented in this encounter Additional Health Concerns Assessment Noted Time PHQ-9 Depression Total Score: 14 023 11:25 AM EST documented as of this encounter Care Teams Industrial Court Magistrate Relationship Specialty Start Date End Date Name, MD Miah [address] [place] [address] PCP - General Family Medicine 02/25/16 documented as of this encounter
--- OUTSIDE RECORDS SUMMARY | 2024-07-23 15:39 | XMS_ITS | Encounter Summary ---
Author Organization [employer] Address [address] [facility] 7t [place] [address] Care Team Providers Care Traveling Passenger Agent Name Role Phone Name, Miah ZUÑIGA Primary Care Provider [phone] Reason for Visit * Reason Comments Med Refill Encounter Details Date Type Department Care Team ([facility] st Contact Info) Description 07/16/2024 Refill [facility] [address] [place], [place] [phone] Name, MD Miah [address] [place] [address] Fibromyalgia; Other chronic pain Social History Tobacco Use [...] Description 09/30/2024 2:00 PM EDT Office Visit [facility] [address] [place] [phone] Name, MD Miah [address] [place] [address] documented as of this encounter Visit Diagnoses Diagnosis Fibromyalgia Unspecified myalgia and myositis Other chronic pain documented in this encounter Additional Health Concerns Assessment Noted Time PHQ-9 Depression Total Score: 0 09/06/19 24 9:21 AM EDT documented as of this encounter Care Teams Traveling Passenger Agent Relationship Specialty Start Date End Date Name, MD Miah [address] [place] [address] PCP - General Family Medicine 02/25/16 documented as of this encounter
== END 2024-07-23 13:36 | disposition home or self-care (01) ==
LOC: HO.HPS 13:20
PROVIDERS: PCP Internal Medicine Geriatric Medicine; Visit Provider Internal Medicine
DX: J45.909 Unspecified asthma, uncomplicated (principal); J30.9 Allergic rhinitis, unspecified
CPT/HCPCS: 99213

== ENCOUNTER → 2024-07-23 13:20 | Outpatient (BNVA) | payer MEDICAID, SELFPAY | PROVIDERS: PCP Internal Medicine Geriatric Medicine; Visit Provider Internal Medicine | DX: J45.909 Unspecified asthma, uncomplicated (principal) | CPT/HCPCS: 99212 ==

== ENCOUNTER 2024-08-25 11:16 | Outpatient (REF) | payer MEDICAID, SELFPAY ==
--- OUTSIDE RECORDS SUMMARY | 2024-08-25 14:35 | XMS_ITS | Encounter Summary ---
Author Organization [employer] [facility] Address [address] [place] [address] 7 [place] [address] Care Team Providers Care User Experience Architect Name Role Phone Name, Miah ZUÑIGA Primary Care Provider [phone] Encounter Details Date Type Department Care Team (Late st Contact Info) Description 05/02/2022 Abstract [facility] 230 [place] [address] Jose Fuentes DDS [address] [place] [address] Social History Tobacco Use Types Packs/Day Years [...] Description 09/30/2024 2:00 PM EDT Office Visit [facility] [address] [place] [address] Name, MD Miah 230 [place] [address] documented as of this encounter Visit Diagnoses Not on filedocumented in this encounter Care Teams User Experience Architect Relationship Specialty Start Date End Date Name, MD Miah [address] [place] [address] PCP - General Family Medicine 02/25/16 documented as of this encounter
--- OUTSIDE RECORDS SUMMARY | 2024-08-25 14:35 | XMS_ITS | Encounter Summary ---
Author Organization [employer] [facility] Address [address] [place] [address] 7 [place] [address] Care Team Providers Care Oven Roaster Name Role Phone Name, Miah ZUÑIGA Primary Care Provider [phone] Encounter Details Date Type Department Care Team (Late st Contact Info) Description 06/21/2022 Orders Only [facility]INE [address] [place] [address] Eliz Mendoza LPN Social History Tobacco Use [...] Description 09/30/2024 2:00 PM EDT Office Visit [facility] 230 [place] [address] Miah Albarran MD [address] [place] [address] documented as of this encounter Visit Diagnoses Not on filedocumented in this encounter Care Teams Oven Roaster Relationship Specialty Start Date End Date Miah Albarran MD [address] [place] [address] PCP - General Family Medicine 02/25/16 documented as of this encounter
--- OUTSIDE RECORDS SUMMARY | 2024-08-25 14:35 | XMS_ITS | Clinical Summary ---
Author Organization [employer] Address [address] [place] [address] 7t [place] [address] Care Team Providers Care Tea Bag Packer Name Role Phone Name, Miah ZUÑIGA Primary Care Provider [phone] Allergies Active Allergy Reactions Criticality Noted Date [...] Description 07/25/2024 Population Health Risk Score Community [facility] (C3) Department [address] [place] [phone] Provider, Population Health Generic 07/16/2024 Refill [facility] 230 [place], [place] [phone] Name, MD Miah Fibromyalgia; Other chronic pain 07/14/2024 Refill [facility] [address] [place], [place] [phone] NameMiah MD Fibromyalgia; Mixed anxiety and depressive disorder; Seborrheic dermatitis 07/08/2024 Telephone [facility] [address] [place] [address] Ronald Lopez [place] august recalls 06/16/2024 Refill [facility] [address] [facility] [place] [address] Name, MD Miah Other chronic pain 06/16/2024 Refill [facility] [address] [facility] [place] [address] Name, MD Miah Fibromyalgia; Other chronic pain 06/15/2024 Refill [facility] [address] [facility] [address] Name, MD Miah from Last 3 Months [...] Description 09/30/2024 2:00 PM EDT Office Visit [facility] [address] [place] [address] Name, MD Miah [address] [place] [address] Health Maintenance Due Date Last Done Comments [...] HPV nRNA E6/E7 Not Detected Not Detected [facility] Comment:Methodology: Transcr iption-Mediated AmplificationThis assay detects E6/E7 viral messenger RNA (mRNA) from 14high-risk HPV types (16,18,31,33,35,39,45,51,52,56,58,59,66,68).Cervical sources are required for HPV testing.If a vaginal source from a patient who has had atotal hysterectomy with removal of cervix wassubmitted, please contact the testing laboratoryfor alternative testing options.For additional information, please refer tohttp://education.[employer]/faq/SBJ489d5(This link if provided for information/educational purposes only.)THIS TEST WAS PERFORMED AT:[employer] [place] [phone] SEVILLA MD HPV mRNA E6/E7 [facility] HPV 16 RNA [facility] HPV 18/45 RNA [facility] 08/15/2022 11:5 7 AM EDT 08/16/2022 3:45 PM EDT us [facility] External Provider LAB CYT OLOGY ORDERABLES Final Result [facility] [address] [place] [phone] * Pap Smear (08/15/2022 11:57 AM EDT) 08/15/2022 11:5 7 AM EDT 08/16/2022 3:45 PM EDT Narrative [facility] - 08/21/2022 2:39 PM EDT ----- ------- Name: Dedra Rojo ? Age/Sex: 37/F ? : 1985 Unit#: [id number] ?? Attend Dr: Kenyetta Marquez CNM ?Re08/15/22 ?Status: DEP REF ? Location: HO.LNP ?Disch: ? ----- ------- SPEC : [id number] ? RECD: 08/16/22881 ? STATUS: ??SOUT ? REQ NUM: [id number] ? MARYAM: 08/15/22-0438 ? SUBM DR: Kenyetta Marquez CNM ? [...] 66, 68) ? HPV testing performed by [employer] [place], [place]. ??See reference laboratory ?? portion of the EMR for entire report. ?Clinical Information LMP: 08/06/22 Previous PAP test: 02/12/18, WNL ? Material Received ?? ThinPrep-Cervical Copies To: ?? Name,Miah ZUÑIGA ?? [address] [facility] ?? [place] [address] ?? [phone] ?? Kenyetta Marquez CNM ?? [address] [place] [address] [place] [address] ?? [place] [address] ?? [phone] ----- ------- Signed (signature on file) Geri A Bridger 08/21/22 3776 ? ----- ------- ? END OF REPORT ? [facility] External Provider LAB CYT OLOGY ORDERABLES Final Result Performing Organization Address [facility] Co de Phone Number [facility] [address] [place] [address] [phone] * HEPATITIS C ANTIBODY (06/12/2019 12:40 PM EST) [facility] HEPATITIS C ANTIBODY NONREACTIVE NONREACTIVE [facility] Comment: Antibodies to HCV not detected; does not exclude early acute HCV infection. 06/12/2019 12:4 0 PM EST Historical Provider MD HISTORICAL/NON ORDERABLE LABS Final Result Performing Organization Address [facility] de Phone Number [facility] [address] * HIV AB/AG (06/12/2019 12:40 PM EST) [facility] HIV AG/AB NONREACTIVE NR [facility] ON LAB [...] detection of this assay. ?? [employer] Preparation Supervisor HIV Ag/Ab Combo assay result and supplemental assay results should be interpreted in conjunction with the patient's clinical presentation, history and other laboratory results. ??If the results are inconsistent with clinical evidence, additional testing is suggested to confirm the result. 06/12/2019 12:4 0 PM EST us Historical Provider HISTORICAL/NON ORDERABLE LABS Final Result [facility] [address] from Last 3 Months or Most Recently Relevant to Health Maintenance Insurance C3 DENTAL-[facility] MEDICAID STAND ADULT Care Teams Tea Bag Packer Relationship Specialty Start Date End Date Name, MD Miah [address] [place] [address] PCP - General Family Medicine 02/25/16
--- OUTSIDE RECORDS SUMMARY | 2024-08-25 14:35 | XMS_ITS | Encounter Summary ---
Author Organization [employer] Address [address] [facility] 7t [place] [address] Care Team Providers Care Manager Lvn Name Role Phone Name, Miah ZUÑIGA Primary Care Provider [phone] Reason for Visit * Reason Comments Med Refill Encounter Details Date Type Department Care Team ([facility] st Contact Info) Description 02/20/2023 Refill [facility] 230 [place], [place] [phone] Name, MD Miah 230 [place] [address] Pain Social History Tobacco Use Types Packs/Day [...] Description 09/30/2024 2:00 PM EDT Office Visit [facility] [address] [place] [address] Name, MD Miah [address] [place] [address] documented as of this encounter Visit Diagnoses Diagnosis Pain Generalized pain documented in this encounter Additional Health Concerns Assessment Noted Time PHQ-9 Depression Total Score: 14 023 11:25 AM EST documented as of this encounter Care Teams Manager Lvn Relationship Specialty Start Date End Date Name, MD Miah [address] [place] [address] PCP - General Family Medicine 02/25/16 documented as of this encounter
--- OUTSIDE RECORDS SUMMARY | 2024-08-25 14:35 | XMS_ITS | Encounter Summary ---
Author Organization [employer] Address [address] [facility] [address] 7t [place] [address] Care Team Providers Care Investment Associate Name Role Phone Name, Miah ZUÑIGA Primary Care Provider [phone] Reason for Visit * Reason Comments Med Refill Encounter Details Date Type Department Care Team ([facility] Contact Info) Description 05/13/2024 Refill [facility] 230 [place] [address] Izabella Haines MD 505 [place] [address] Social History Tobacco Use Types Packs/Day Years [...] PM EDT Office Visit [facility] [address] [place] [address] Name, MD Miah [address] [place] [address] documented as of this encounter Visit Diagnoses Not on filedocumented in this encounter Additional Health Concerns Assessment Noted Time PHQ-9 Depression Total Score: 0 09/06/19 24 9:21 AM EDT documented as of this encounter Care Teams Investment Associate Relationship Specialty Start Date End Date NameMiah MD [address] [place] [address] PCP - General Family Medicine 02/25/16 documented as of this encounter
--- OUTSIDE RECORDS SUMMARY | 2024-08-25 14:35 | XMS_ITS | Encounter Summary ---
Author Organization [facility] [facility] Address [address] [place] [address] 7 [place] [address] Care Team Providers Care Supply Assistant Name Role Phone Name, Miah ZUÑIGA Primary Care Provider [phone] Encounter Details Date Type Department Care Team (Late st Contact Info) Description 07/04/2022 Orders Only [facility] MED & PEDS [address] [place], [place] [phone] Edita Vee LPN Social History Tobacco Use [...] Visit [facility]ICINE 230 [place] [address] Miah Albarran MD [address] [place] [address] documented as of this encounter Visit Diagnoses Not on filedocumented in this encounter Care Teams Supply Assistant Relationship Specialty Start Date End Date Miah Albarran MD [address] [place] [address] PCP - General Family Medicine 02/25/16 documented as of this encounter
--- OUTSIDE RECORDS SUMMARY | 2024-08-25 14:35 | XMS_ITS | Encounter Summary ---
Author Organization [employer] Address [address] [facility] 7t [place] [address] Care Team Providers Care Senior Product Manager Name Role Phone Name, Miah ZUÑIGA Primary Care Provider [phone] Reason for Visit * Reason Comments Med Refill Encounter Details Date Type Department Care Team ([facility] st Contact Info) Description 06/16/2024 Refill [facility] [address] [place], [place] [phone] Name, MD Miah [address] [place] [address] Other chronic pain Social History Tobacco Use [...] Description 09/30/2024 2:00 PM EDT Office Visit [facility] MED[facility]INE [address] [place] [phone] Name, MD Miah [address] [place] [phone] documented as of this encounter Visit Diagnoses Diagnosis Other chronic pain documented in this encounter Additional Health Concerns Assessment Noted Time PHQ-9 Depression Total Score: 0 09/06/19 24 9:21 AM EDT documented as of this encounter Care Teams Senior Product Manager Relationship Specialty Start Date End Date NameMiah MD [address] [place] [phone] PCP - General Family Medicine 02/25/16 documented as of this encounter
--- OUTSIDE RECORDS SUMMARY | 2024-08-25 14:35 | XMS_ITS | Encounter Summary ---
Author Organization [facility] Address [address] [place] [address] [address], [place] [address] Care Team Providers Care Account Specialist Name Role Phone Name, Miah ZUÑIGA Primary Care Provider [phone] Reason for Visit * Reason Comments Med Refill Encounter Details Date Type Department Care Team ([facility] [address] Contact Info) Description 11/22/2022 Refill [facility] MEDICINE [address] [place] [address] [phone] [facility] [address] [place] [address] Pain Social History Tobacco Use Types Packs/Day [...] Description 09/30/2024 2:00 PM EDT Office Visit [facility] MEDICINE [address] [place] [address] [phone] Name, MD Miah [address] [place], [place] [phone] documented as of this encounter Visit Diagnoses Diagnosis Pain Generalized pain documented in this encounter Additional Health Concerns Assessment Noted Time PHQ-9 Depression Total Score: 14 023 11:25 AM EST documented as of this encounter Care Teams Account Specialist Relationship Specialty Start Date End Date Name, MD Miah [address] [place] [address] PCP - General Family Medicine 02/25/16 documented as of this encounter
--- OUTSIDE RECORDS SUMMARY | 2024-08-25 14:36 | XMS_ITS | Encounter Summary ---
Author Organization [employer] Address [address] [facility] 7 [place] [address] Care Team Providers Care Head Of Design Name Role Phone Name, Miah ZUÑIGA Primary Care Provider [phone] Reason for Visit * Reason Onset Date Comments Med Refill 01/15/2024 Encounter Details Date Type Department Care Team (Late st Contact Info) Description 01/15/2024 Refill [facility] [address] [place], [place] [phone] Name, MD Miah [address] [place] [address] Other chronic pain Social History Tobacco Use [...] 09/30/2024 2:00 PM EDT [facility] [address] [place] [phone] Name, MD Miah [address] [place] [address] documented as of this encounter Visit Diagnoses Diagnosis Other chronic pain documented in this encounter Additional Health Concerns Assessment Noted Time PHQ-9 Depression Total Score: 0 09/06/19 24 9:21 AM EDT documented as of this encounter Care Teams Head Of Design Relationship Specialty Start Date End Date NameMiah MD [address] [place] [phone] PCP - General Family Medicine 02/25/16 documented as of this encounter
--- OUTSIDE RECORDS SUMMARY | 2024-08-25 14:36 | XMS_ITS | Encounter Summary ---
Author Organization [employer] Address [address] [facility] [address] 7[address] [place] [address] Care Team Providers Care Venetian Blind Washer Name Role Phone Name, Miah ZUÑIGA Primary Care Provider [phone] Reason for Visit * Reason Comments Med Refill Encounter Details Date Type Department Care Team ([facility] Contact Info) Description 08/03/2023 Refill [facility] [address] [place] [address] Izabella Haines MD [address] [place] [address] Social History Tobacco Use Types Packs/Day Years [...] Description 09/30/2024 2:00 PM EDT Office Visit [facility] MED[facility]INE [address] [place] [phone] Name, MD Miah [address] [place] [phone] documented as of this encounter Visit Diagnoses Not on filedocumented in this encounter Additional Health Concerns Assessment Noted Time PHQ-9 Depression Total Score: 14 023 11:25 AM EST documented as of this encounter Care Teams Venetian Blind Washer Relationship Specialty Start Date End Date Name, MD Miah [address] [place] [phone] PCP - General Family Medicine 02/25/16 documented as of this encounter
--- OUTSIDE RECORDS SUMMARY | 2024-08-25 14:36 | XMS_ITS | Encounter Summary ---
Author Organization [employer] Address [address] [place] [address] 7[address] [place] [address] Care Team Providers Care Insurance Licensing Supervisor Name Role Phone Name, Miah ZUÑIGA Primary Care Provider [phone] Encounter Details Date Type Department Care Team (Late Contact Info) Description 08/01/2022 Orders Only [facility] [address] [place], [place] [phone] Edita Vee LPN Social History Tobacco Use [...] Description 09/30/2024 2:00 PM EDT Office Visit [facility] 230 [place], [place] [phone] Name, MD Miah [address] [place], [place] [phone] documented as of this encounter Visit Diagnoses Not on filedocumented in this encounter Additional Health Concerns Assessment Noted Time PHQ-9 Depression Total Score: 14 023 11:25 AM EST documented as of this encounter Care Teams Insurance Licensing Supervisor Relationship Specialty Start Date End Date Name, MD Miah [address] [place] [address] PCP - General Family Medicine 02/25/16 documented as of this encounter
[2024-08-25 14:45] LABS: HCG Quantitative < 2 mIU/mL; Thyroid Stimulating Hormone 0.98 uIU/mL (0.32-4.0)
[2024-08-26 07:49] LABS: Prolactin 11.1 ng/mL
== END 2024-08-25 11:17 | disposition home or self-care (01) ==
LOC: HO.LAB 11:16
PROVIDERS: PCP Internal Medicine Geriatric Medicine; Visit Provider Advanced Practice Midwife
DX: Z01.419 Encounter for gynecological examination (general) (routine) without abnormal findings (principal); Z30.41 Encounter for surveillance of contraceptive pills; N92.6 Irregular menstruation, unspecified; Z87.42 Personal history of other diseases of the female genital tract; N91.1 Secondary amenorrhea
CPT/HCPCS: 36415; 84146; 84443; 84702; 99395; 99459

== ENCOUNTER 2024-08-25 11:16 | Outpatient (AMB) | payer MEDICAID, SELFPAY ==
--- NOTE | 2024-08-25 11:18 | A.OFFVIS_ITS ---
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 Previous to May has always had normal periods. Valuation Consultant: Valuation Consultant Present (Sintia) Accompanied by: Spouse Allergies aspirin Allergy (Severe, Verified 08/25/24 11:31) hives penicillin V Allergy (Severe, Verified 08/25/24 11:31) anaphylaxis, anaphylaxis, rash vancomycin Allergy (Severe, Verified 08/25/24 11:31) anaphylaxis Medication List - Last Reconciled 08/25/24 by Kenyetta Marquez CNM albuterol sulfate 90 mcg/actuation (Ventolin HFA) 2 puffs PO Q4-6H PRN albuterol sulfate 2.5 mg (3 mL) inhalation Q6H PRN cetirizine (Zyrtec) 10 mg PO DAILY PRN cholecalciferol (vitamin D3) 25 mcg PO DAILY duloxetine (Cymbalta) 60 mg PO BID fluticasone propion-salmeterol 250-50 mcg/dose (Advair Diskus) 1 ea PO BID fluticasone propionate 50 mcg/actuation 2 sprays intranasal DAILY ipratropium bromide 2 sprays intranasal TID montelukast 10 mg PO BEDTIME norethindrone (contraceptive) 0.35 mg PO DAILY pregabalin 150 mg PO TID sumatriptan succinate 0 mg PO trazodone 50 mg PO BEDTIME PRN Is last menstrual period known: Yes Last menstrual period: 06/06/24 Post menopausal: No HPI HPI 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 After that she did have normal periods until May but then her last period was the end of May and in July she had a little bit of spotting and she has had no periods since she is on the norethindrone control pills to the best of her knowledge she has not missed any pills. She does want a refill on them but she says with her other 2 children she was but it did not show up in the urine test only in the blood tests so she would like a blood test to be sure today the urine test here in the office is negative.. PFSH Medical History Simple cystoma of ovary Migraine with aura Asthma Allergic rhinitis Surgical History Hx of section Social History Alcohol intake: never Patient Tobacco Use Status: Never used Tobacco Sexual orientation: Straight/Heterosexual Female Reproductive History Menstrual Age of Menarche: 13 Duration of menses: 6-7 days Date of last menstrual period: 06/06/24 control method: pills Total pregnancies: 2 Full term: 2 Date of last pap smear: 08/15/22 (negative hpv, negative pap smear) History of abnormal pap smear: Yes (CIN1 ) Physical Exam Vital Signs: Last Vital Signs BP 102/62 08/25/24 11:28 BMI result Body Mass Index 31.2 Const General: healthy appearing, comfortable, no acute distress, well developed and alert Nutritional Appearance: average body habitus Orientation/consciousness: patient oriented x3 Limitations: no limitations HEENT Head: Yes normocephalic Neck Neck: Yes normal visual inspection Chest Chest palpation & inspection: normal inspection of the chest Breast/axilla inspection: normal inspection of the breasts and normal inspection of the axillae Breast/axilla palpation: normal palpation of the breasts and normal palpation of the axillae Resp Effort & Inspection: normal respiratory effort GI Inspection: Yes normal to inspection, No Abdominal wall edema and No distended Palpation (GI): Soft to palpation and nontender Other: Slightly pink at introitus patient denies any itching. Vagina pink and moist with normal appearing whitish discharge cervix is nulliparous downward facing. Uterus is small anteverted slightly fixed secondary to uterine scarring from 2 C sections nontender adnexa nontender very good tone with Kegel. General: Yes bladder normal to palpation External Female Exam: normal external appearance and normal appearance of the urethra Speculum Exam - Vagina: normal appearance of the vagina, normal palpation and normal vaginal discharge Speculum Exam - Cervix: normal appearance of the cervix, normal palpation and nontender Bimanual exam- vagina & uterus: normal bimanual exam, normal palpation, uterine size normal, bladder normal to palpation, consistency normal, normal palpation, uterine mobility normal, uterine shape normal, No Cervical tenderness present, non-tender and no cervical motion tenderness Bimanual Exam- Adnexa, other: normal adnexae, no masses, normal and No adnexal tenderness Neuro General: patient oriented x3 Assessment & Plan Assessment & Plan (1) Surveillance for control, oral contraceptives: Code(s): Z30.41 - Encounter for surveillance of contraceptive pills Category: Medical (2) Well woman exam with routine gynecological exam: Code(s): Z01.419 - Encounter for gynecological examination (general) (routine) without abnormal findings Category: Medical (3) Amenorrhea due to oral contraceptive: Code(s): N91.2 - Amenorrhea, unspecified; Z79.3 - 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 Code(s): Z87.42 - Personal history of other diseases of the female genital tract Category: Medical Plan Patient denies any miss pills so she does not think she is but she would like to check for sure with a serum blood test patient believes that she has seen her primary care provider within the last few months and that she has had other labs done including thyroid levels but I do not see any in the system for several years so I am ordering it as well as a prolactin level along with the hCG. Discussed her past ultrasound which showed a simple cyst in 2021 but given no other positive findings I do not see a reason to repeat that today at this point in time. Discussed that her next period When it does come maybe a heavy 1. She is on the portal but she can also call the nurse to check on her results before 04:00 today we would follow-up obviously on any positive test. Discussed that her uterus is slightly fixed secondary to the presence of the scar tissue from the 2 C sections. Discussed her severe asthma and she may want to consider masking and she feels she might be at risk to catch something so she does not get sick. 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 Orders: Orders HCG Quantitative Today N92.6 - Irregular menstruation, unspecified, Z30.41 - Encounter for surveillance of contraceptive pills Thyroid Stimulating Hormone Today N91.1 - Secondary amenorrhea, Z01.419 - Encounter for gynecological examination (general) (routine) without abnormal findings, Z30.41 - Encounter for surveillance of contraceptive pills, Z87.42 - Personal history of other diseases of the female genital tract Prolactin Today N91.1 - Secondary amenorrhea, Z01.419 - Encounter for gynecological examination (general) (routine) without abnormal findings, Z30.41 - Encounter for surveillance of contraceptive pills, Z87.42 - Personal history of other diseases of the female genital tract Medications: Refilled norethindrone (contraceptive) 0.35 mg PO DAILY 84 tabs 4RF Coding Level of Care Code Est Pt Prev Care 18-39y(38502) Diagnoses Surveillance for control, oral contraceptives Z30.41 Well woman exam with routine gynecological exam Z01.419 Amenorrhea due to oral contraceptive N91.2; Z79.3 Hx of abnormal cervical Pap smear Z87.42
[2024-08-25 11:28] VITALS: BP 102/62; BMI 31.2
--- OUTSIDE RECORDS SUMMARY | 2024-08-25 13:19 | XMS_ITS | Encounter Summary ---
Author Organization [employer] [facility] Address [address] [place] [address] [place] [address] Care Team Providers Care Application Support Technician Name Role Phone Name, Miah ZUÑIGA Primary Care Provider [phone] Reason for Visit * Reason Comments Med Refill Encounter Details Date Type Department Care Team ([facility] Contact Info) Description 11/22/[address] [facility] [address] [place] [address] [phone] [facility] [address] [place] [address] Pain Social History Tobacco Use Types Packs/Day [...] 09/30/2024 2:00 PM EDT Office Visit [facility] [address] [place] [address] [phone] Name, MD Miah [address] [place], [place] [phone] documented as of this encounter Visit Diagnoses Diagnosis Pain Generalized pain documented in this encounter Additional Health Concerns Assessment Noted Time PHQ-9 Depression Total Score: 14 023 11:25 AM EST documented as of this encounter Care Teams Application Support Technician Relationship Specialty Start Date End Date Name, MD Miah [address] [place] [address] PCP - General Family Medicine 02/25/16 documented as of this encounter
--- OUTSIDE RECORDS SUMMARY | 2024-08-25 13:19 | XMS_ITS | Encounter Summary ---
Author Organization [employer] Address [address] [facility] [address] [place] [address] Care Team Providers Care Packaging Tech Name Role Phone Name, Miah ZUÑIGA Primary Care Provider [phone] Reason for Visit * Reason Comments Med Refill Encounter Details Date Type Department Care Team ([facility] Contact Info) Description 05/13/2024 Refill [facility] [address] [place] [address] Izabella Haines MD [address] [place] [address] Social History Tobacco Use Types Packs/Day Years [...] Description 09/30/2024 2:00 PM EDT Office Visit [facility] [address] [place] [phone] Name, MD Miah [address] [place] [phone] documented as of this encounter Visit Diagnoses Not on filedocumented in this encounter Additional Health Concerns Assessment Noted Time PHQ-9 Depression Total Score: 0 09/06/19 24 9:21 AM EDT documented as of this encounter Care Teams Packaging Tech Relationship Specialty Start Date End Date NameMiah MD [address] [place] [phone] PCP - General Family Medicine 02/25/16 documented as of this encounter
--- OUTSIDE RECORDS SUMMARY | 2024-08-25 13:19 | XMS_ITS | Encounter Summary ---
Author Organization [employer] Address [address] [facility] 7t [place] [address] Care Team Providers Care Timing Machine Operator Name Role Phone Name, Miah ZUÑIGA Primary Care Provider [phone] Reason for Visit * Reason Comments Med Refill Encounter Details Date Type Department Care Team ([facility] st Contact Info) Description 06/16/2024 Refill [facility] [address] [place], [place] [phone] Name, MD Miah [address] [place] [address] Other chronic pain Social History Tobacco Use [...] Description 09/30/2024 2:00 PM EDT Office Visit [facility] [address] [place] [address] Name, MD Miah [address] [place] [phone] documented as of this encounter Visit Diagnoses Diagnosis Other chronic pain documented in this encounter Additional Health Concerns Assessment Noted Time PHQ-9 Depression Total Score: 0 09/06/19 24 9:21 AM EDT documented as of this encounter Care Teams Timing Machine Operator Relationship Specialty Start Date End Date NameMiah MD [address] [place] [id number] PCP - General Family Medicine 02/25/16 documented as of this encounter
--- OUTSIDE RECORDS SUMMARY | 2024-08-25 13:19 | XMS_ITS | Encounter Summary ---
Author Organization [employer] Address [address] [facility] [address] [place] [address] Care Team Providers Care Post Anesthesia Nurse Name Role Phone Name, Miah ZUÑIGA Primary Care Provider [phone] Reason for Visit * Reason Comments Med Refill Encounter Details Date Type Department Care Team ([facility] st Contact Info) Description 02/20/2023 Refill [facility] [address] [place], [place] [phone] Name, MD Miah [address] [place] [address] Pain Social History Tobacco Use Types Packs/Day [...] 2:00 PM EDT Office Visit [facility] [address] [place] [phone] Name, MD Miah [address] [place] [phone] documented as of this encounter Visit Diagnoses Diagnosis Pain Generalized pain documented in this encounter Additional Health Concerns Assessment Noted Time PHQ-9 Depression Total Score: 14 023 11:25 AM EST documented as of this encounter Care Teams Post Anesthesia Nurse Relationship Specialty Start Date End Date Name, MD Miah [address] [place] [id number] PCP - General Family Medicine 02/25/16 documented as of this encounter
--- OUTSIDE RECORDS SUMMARY | 2024-08-25 13:19 | XMS_ITS | Encounter Summary ---
Author Organization [email or web address] [facility] Address [address] [place] [address] [address] [place] [address] Care Team Providers Care Business Intelligence Architect Name Role Phone Name, Miah ZUÑIGA Primary Care Provider [phone] Encounter Details Date Type Department Care Team (Late st Contact Info) Description 05/02/2022 Abstract [facility] [address] [place] [address] Joes Fuentes DDS [address] [place] [address] Social History Tobacco Use Types Packs/Day Years [...] Description 09/30/2024 2:00 PM EDT Office Visit [facility] [address] [place] [address] Name, MD Miah [address] [place] [address] documented as of this encounter Visit Diagnoses Not on filedocumented in this encounter Care Teams Business Intelligence Architect Relationship Specialty Start Date End Date Name, MD Miah [address] [place] [id number] PCP - General Family Medicine 02/25/16 documented as of this encounter
--- OUTSIDE RECORDS SUMMARY | 2024-08-25 13:20 | XMS_ITS | Encounter Summary ---
Author Organization [email or web address] Address [address] [place] [address] [address] [place] [address] Care Team Providers Care Mold Presser Name Role Phone Name, Miah ZUÑIGA Primary Care Provider [phone] Encounter Details Date Type Department Care Team (Late Contact Info) Description 08/01/2022 Orders Only [facility] [address] [place], [place] [phone] Edita Vee LPN Social History Tobacco Use [...] 09/30/2024 2:00 PM EDT Office Visit [facility] [address] [place], [place] [phone] Name, MD Miah [address] [place], [place] [phone] documented as of this encounter Visit Diagnoses Not on filedocumented in this encounter Additional Health Concerns Assessment Noted Time PHQ-9 Depression Total Score: 14 023 11:25 AM EST documented as of this encounter Care Teams Mold Presser Relationship Specialty Start Date End Date Name, MD Miah [address] [place] [address] PCP - General Family Medicine 02/25/16 documented as of this encounter
--- OUTSIDE RECORDS SUMMARY | 2024-08-25 13:20 | XMS_ITS | Encounter Summary ---
Author Organization [employer] [facility] Address [address] [place] [address] [address] [place] [address] Care Team Providers Care Employee'S Representative Name Role Phone Name, Miah ZUÑIGA Primary Care Provider [phone] Encounter Details Date Type Department Care Team (Late st Contact Info) Description 07/04/2022 Orders Only [facility] [address] [place], [place] [phone] Edita Vee LPN Social History Tobacco Use [...] Description 09/30/2024 2:00 PM EDT Office Visit [facility] [address] [place] [address] Miah Albarran MD [address] [place] [address] documented as of this encounter Visit Diagnoses Not on filedocumented in this encounter Care Teams Employee'S Representative Relationship Specialty Start Date End Date Miah Albarran MD [address] [place] [address] PCP - General Family Medicine 02/25/16 documented as of this encounter
--- OUTSIDE RECORDS SUMMARY | 2024-08-25 13:20 | XMS_ITS | Clinical Summary ---
Author Organization [employer] Address [address] [place] [address] [address] [place] [address] Care Team Providers Care Special Education Classroom Aide Name Role Phone Name, Miah ZUÑIGA Primary Care Provider [phone] Allergies Active Allergy Reactions Criticality Noted Date Comments Aspirin 10/10/2016 Other reaction(s): Rash Penicillins 05/10/2015 Other reaction(s): Unknown Vancomycin 10/10/2016 Medications norethindrone (Micronor) 0.35 MG tablet Take 1 tablet by mouth in the morning. 3 Active Vitamin D3 25 MCG (1000 UT) chewable tabletIndicatio ns:Vitamin D deficiency CHEW/DISSOLVE 1 TABLET BY MOUTH EVERY DAY IN THE MORNING 90 tablet 3 4 Active Ventolin HFA 108 (90 Base) MCG/ACT inhaler INHALE 2 PUFF EVERY 4 TO 6 HOURS NEEDED FOR FOR WHEEZING 4 Active Advair Diskus 250-50 MCG/ACT aerosol powder Inhale 1 Dose 2 times daily. rinse mouth after use 4 Active montelukast (Singulair) 10 MG tablet Take 10 mg by mouth at bedtime. Active hydrocortisone 2.5 % cream APPLY 1 APPLICATION BY TOPICAL ROUTE 2 TIMES EVERY DAY 28 g 5 4 Active SUMAtriptan (Imitrex) 25 MG tabletIndicatio ns:Pain TAKE 1 TABLET AT ONSET OF MIGRAINE, MAY REPEAT IN 2 HOURS IF NEEDED. MAX 8 TABS/24 HOURS 10 tablet 2 4 Active ipratropium (Atrovent) 0.06 % nasal sprayIndication s:Other chronic pain SPRAY 2 SPRAYS INTO EACH NOSTRIL 3 TIMES A DAY 15 mL 1 4 Active DULoxetine (Cymbalta) [address] capsule TAKE 1 CAPSULE BY MOUTH EVERY DAY 30 capsule 5 5 Active traZODone (Desyrel) 50 MG tabletIndicatio ns:Fibromyalgia ,Mixed anxiety and depressive disorder TAKE 1 TABLET BY MOUTH EVERYDAY AT BEDTIME 30 tablet 3 5 Active ketoconazole (NIZOral) 2 % shampooIndicati ons:Seborrheic dermatitis USE DAILY AND LATHER ONTO AFFECTED AREA(S), LEAVE IN PLACE FOR 5 MINUTES, THEN RINSE OFF WITH WATER 120 mL 3 5 Active cyclobenzaprine (Flexeril) 10 MG tabletIndicatio ns:Fibromyalgia TAKE 1 TABLET BY MOUTH IN THE MORNING, NOON AND BEDTIME NEEDED FOR MUSCLE SPASM 90 tablet 5 Active pregabalin (Lyrica) 150 MG capsuleIndicati ons:Other chronic pain TAKE 1 CAPSULE BY MOUTH THREE TIMES A DAY 90 capsule 5 Active Active Problems Problem Noted Date Diagnosed Date Mixed anxiety and depressive disorder 07/10/2022 Vitamin D deficiency 06/06/2019 Fibromyalgia 06/04/2017 Migraine 06/04/2017 Carpal tunnel syndrome 06/05/2016 Asthma 05/10/2015 Resolved Problems Problem Noted Date Diagnosed Date Resolved Date Numbness of upper limb 03/06/201609/05 Hand muscle weakness 03/06/2016 024 Encounters Date Type Department Care Team Description 07/25/2024 Population Health Risk Score Community [facility] (C3) Department [address] [place] [phone] Provider, Population Health Generic 07/16/2024 Refill [facility] [address] [place], [place] [phone] Name, MD Miah Fibromyalgia; Other chronic pain 07/14/2024 Refill [facility] [address] [place], [place] [phone] NameMiah MD Fibromyalgia; Mixed anxiety and depressive disorder; Seborrheic dermatitis 07/08/2024 Telephone [facility] [address] [place] [address] Ronald Lopez MA august recalls 06/16/2024 Refill [facility] [address] [facility] [place] [address] Name, MD Miah Other chronic pain 06/16/2024 Refill [facility] [place] [facility] [place] [address] Name, MD Miah Fibromyalgia; Other chronic pain 06/15/2024 Refill [facility] [place] [facility] [place] [address] Name, MD Miah from Last 3 Months Immunizations Name Administration [...] is your housing situation today? I have scottestiven zamora 09/06/[address] you [...] Description 09/30/2024 2:00 PM EDT Office Visit [facility] [address] [place] [address] Name, MD Miah [address] [place] [address] Health Maintenance Due Date Last Done Comments [...] C ANTIBODY Routine 06/12/2019 12:40 PM EST [facility] HISTORICAL HIV AB/AG Routine 06/12/2019 12:40 PM [...] HPV nRNA E6/E7 Not Detected Not Detected [facility] Comment:Methodology: Transcr iption-Mediated AmplificationThis assay detects E6/E7 viral messenger RNA (mRNA) from 14high-risk HPV types (16,18,31,33,35,39,45,51,52,56,58,59,66,68).Cervical sources are required for HPV testing.If a vaginal source from a patient who has had atotal hysterectomy with removal of cervix wassubmitted, please contact the testing laboratoryfor alternative testing options.For additional information, please refer tohttp://education.eÓtica/faq/KUK492v5(This link if provided for information/educational purposes only.)THIS TEST WAS PERFORMED AT:[employer] [place] [phone] SEVILLA MD HPV mRNA E6/E7 [facility] HPV 16 RNA [facility] HPV 18/45 RNA [facility] 08/15/2022 11:5 7 AM EDT 08/16/2022 3:45 PM EDT us [facility] External Provider LAB CYT OLOGY ORDERABLES Final Result [facility] [address] [place] [phone] * Pap Smear (08/15/2022 11:57 AM EDT) 08/15/2022 11:5 7 AM EDT 08/16/2022 3:45 PM EDT Narrative [facility] - 08/21/2022 2:39 PM EDT ----- ------- Name: Dedra Rojo ? Age/Sex: 37/F ? : 1985 Unit#: [id number] ?? Attend Dr: Kenyetta Marquez CNM ?Re08/15/22 ?Status: DEP REF ? Location: HO.LNP ?Disch: ? ----- ------- SPEC : [id number] ? RECD: 08/16/22105 ? STATUS: ??SOUT ? REQ NUM: [id number] ? MARYAM: 08/15/22-7074 ? SUBM DR: Kenyetta Marquez CNM ? ENTERED: ??08/16/22-1634 ?SP TYPE: Pap Smr ?OTHR DR: Name,Miah ZUÑIGA ? ORDERED: ??Pap Smear ? Interpretation ?? Satisfactory for evaluation. ?? Negative for intraepithelial lesion or malignancy. ? HPV mRNA E6/E7: ?NOT DETECTED ? This assay detects E6/E7 viral messenger RNA (mRNA) from 14 high-risk HPV types (16, 18, ?? 31, 33, 35, 39, 45, 51, 52, 56, 58, 59, 66, 68) ? HPV testing performed by [employer], [place], [place]. ??See reference laboratory ?? portion of the EMR for entire report. ?Clinical Information LMP: 08/06/22 Previous PAP test: 02/12/18, WNL ? Material Received ?? ThinPrep-Cervical Copies To: ?? Name,Miah ZUÑIGA ?? [address] [facility] ?? [place] [address] ?? [phone] ?? Kenyetta Marquez CNM ?? [address] [place] [address] [place] [address] ?? [place] [address] ?? [phone] ----- ------- Signed (signature on file) Geri A Bridger 08/21/22 0007 ? ----- ------- ? END OF REPORT ? [facility] External Provider LAB CYT OLOGY ORDERABLES Final Result Performing Organization Address [facility] Co de Phone Number [facility] [address] [place] [address] [phone] * HEPATITIS C ANTIBODY (06/12/2019 12:40 PM EST) [facility] HEPATITIS C ANTIBODY NONREACTIVE NONREACTIVE [facility] Comment: Antibodies to HCV not detected; does not exclude early acute HCV infection. 06/12/2019 12:4 0 PM EST Historical Provider MD HISTORICAL/NON ORDERABLE LABS Final Result Performing Organization Address [facility] de Phone Number [facility] [address] * HIV AB/AG (06/12/2019 12:40 PM EST) [facility] HIV AG/AB NONREACTIVE [facility] LAB [...] detection of this assay. ?? [employer] Recruitment Officer HIV Ag/Ab Combo assay result and supplemental assay results should be interpreted in conjunction with the patient's clinical presentation, history and other laboratory results. ??If the results are inconsistent with clinical evidence, additional testing is suggested to confirm the result. 06/12/2019 12:4 0 PM EST us Historical Provider HISTORICAL/NON ORDERABLE LABS Final Result [facility] [address] from Last 3 Months or Most Recently Relevant to Health Maintenance Insurance C3 DENTAL-[facility] MEDICAID STAND ADULT Care Teams Special Education Classroom Aide Relationship Specialty Start Date End Date Name, MD Miah [address] [place] [address] PCP - General Family Medicine 02/25/16
--- OUTSIDE RECORDS SUMMARY | 2024-08-25 13:20 | XMS_ITS | Encounter Summary ---
Author Organization [employer] Address [address] [facility] 7 [place] [address] Care Team Providers Care Towel Folder Name Role Phone Name, Miah ZUÑIGA Primary Care Provider [phone] Reason for Visit * Reason Onset Date Comments Med Refill 01/15/2024 Encounter Details Date Type Department Care Team (Late st Contact Info) Description 01/15/2024 Refill [facility] 230 [place], [place] [phone] Name, MD Miah [address] [place] [address] Other chronic pain Social History Tobacco Use [...] Description 09/30/2024 2:00 PM EDT Office Visit [facility] [address] [place] [address] Name, MD Miah [address] [place] [address] documented as of this encounter Visit Diagnoses Diagnosis Other chronic pain documented in this encounter Additional Health Concerns Assessment Noted Time PHQ-9 Depression Total Score: 0 09/06/19 24 9:21 AM EDT documented as of this encounter Care Teams Towel Folder Relationship Specialty Start Date End Date NameMiah MD [address] [place] [address] PCP - General Family Medicine 02/25/16 documented as of this encounter
--- OUTSIDE RECORDS SUMMARY | 2024-08-25 13:20 | XMS_ITS | Encounter Summary ---
Author Organization [employer] [facility] Address [address] [place] [address] 7 [place] [address] Care Team Providers Care Human Services Care Specialist Name Role Phone Name, Miah ZUÑIGA Primary Care Provider [phone] Encounter Details Date Type Department Care Team (Late st Contact Info) Description 06/21/2022 Orders Only [facility] MEDICINE [address] [place] [address] Eliz Mendoza LPN Social History Tobacco Use [...] [facility] 230 [place] [address] Miah Albarran MD 230 [place] [address] documented as of this encounter Visit Diagnoses Not on filedocumented in this encounter Care Teams Human Services Care Specialist Relationship Specialty Start Date End Date Miah Albarran MD 230 [place] [address] PCP - General Family Medicine 02/25/16 documented as of this encounter
--- OUTSIDE RECORDS SUMMARY | 2024-08-25 13:20 | XMS_ITS | Encounter Summary ---
Author Organization [employer] Address [address] [facility] [address] 7[address] [place] [address] Care Team Providers Care Jawbone Breaker Name Role Phone Name, Miah ZUÑIGA Primary Care Provider [phone] Reason for Visit * Reason Comments Med Refill Encounter Details Date Type Department Care Team ([facility] Contact Info) Description 08/03/2023 Refill [facility] 230 [place] [address] Izabella Haines MD [address] [place] [address] Social History Tobacco Use Types Packs/Day Years [...] Description 09/30/2024 2:00 PM EDT Office Visit [facility] [address] [place] [address] Name, MD Miah [address] [place] [address] documented as of this encounter Visit Diagnoses Not on filedocumented in this encounter Additional Health Concerns Assessment Noted Time PHQ-9 Depression Total Score: 14 023 11:25 AM EST documented as of this encounter Care Teams Jawbone Breaker Relationship Specialty Start Date End Date Name, MD Miah [address] [place] [address] PCP - General Family Medicine 02/25/16 documented as of this encounter
== END 2024-08-25 13:05 | disposition home or self-care (01) ==
LOC: HO.HWS 11:16
PROVIDERS: PCP Internal Medicine Geriatric Medicine; Visit Provider Advanced Practice Midwife
DX: Z01.419 Encounter for gynecological examination (general) (routine) without abnormal findings (principal); N91.2 Amenorrhea, unspecified; Z79.3 Long term (current) use of hormonal contraceptives
CPT/HCPCS: 99395; 99459

== ENCOUNTER 2025-01-21 13:41 | Outpatient (AMB) | payer MEDICAID, SELFPAY ==
--- NOTE | 2025-01-21 13:46 | MHC.OFFVISCO ---
Intake Intake Visit Reasons: Asthma Allergies aspirin Allergy (Severe, Verified 08/25/24 11:31) hives penicillin V Allergy (Severe, Verified 08/25/24 11:31) anaphylaxis, anaphylaxis, rash vancomycin Allergy (Severe, Verified 08/25/24 11:31) anaphylaxis Anti-Coag Initial Assessment Social Hx Patient Tobacco Use Status: Never used Tobacco alcohol intake: never Coding
[2025-01-21 13:47] VITALS: BP 119/77; PULSE 77; O2SAT 97; BMI 29.6
--- NOTE | 2025-01-21 13:53 | MHC.OFFVIS ---
Vital Signs 01/21/25 13:47 Height 5 ft 3 in Weight 167 lb BMI 29.6 BP 119/77 Blood Pressure Location Rt brachial Position Sitting Pulse 77 Pulse Source Pulse Oximeter Pulse Oximetry (%) 97 Oxygen Delivery Method Room Air Intake Visit Reasons: Asthma Intake Note: Patient is here for a follow up on Asthma Allergies aspirin Allergy (Severe, Verified 01/21/25 13:58) hives penicillin V Allergy (Severe, Verified 01/21/25 13:58) anaphylaxis, anaphylaxis, rash vancomycin Allergy (Severe, Verified 01/21/25 13:58) anaphylaxis Medication List - Last Reconciled 01/21/25 by Sherice Martin MD albuterol sulfate 90 mcg/actuation (Ventolin HFA) 2 puffs PO Q4-6H PRN albuterol sulfate 2.5 mg (3 mL) inhalation Q6H PRN cetirizine (Zyrtec) 10 mg PO DAILY PRN cholecalciferol (vitamin D3) 25 mcg PO DAILY duloxetine (Cymbalta) 60 mg PO BID fluticasone propion-salmeterol 250-50 mcg/dose (Advair Diskus) 1 ea PO BID fluticasone propionate 50 mcg/actuation 2 sprays intranasal DAILY ipratropium bromide 2 sprays intranasal TID montelukast 10 mg PO BEDTIME norethindrone (contraceptive) 0.35 mg PO DAILY pregabalin 150 mg PO TID sumatriptan succinate 0 mg PO trazodone 50 mg PO BEDTIME PRN Do you need a note to return to daycare/school/sports/work: No HPI HPI Asthma: Details: Dedra , 39 years old female, is here for 6 months follow-up for her asthma/COPD and allergic rhinitis. With her current medical regimen she has been doing very well and remained stable. Last week she did get soaked in the rain and then had some discomfort in the left lower chest, but that has cleared. Nasal congestion also remains under control. [facility] Medical History Simple cystoma of ovary Migraine with aura Asthma Allergic rhinitis Surgical History Hx of section Social History Alcohol intake: never Patient Tobacco Use Status: Never used Tobacco Sexual orientation: Straight/Heterosexual Female Reproductive History Menstrual Age of Menarche: 13 Review of Systems Const All systems reviewed & are unremarkable except as noted in HPI and below Eyes Reports no additional complaints ENT Reports nasal congestion (Mild and controlled) Card Denies chest pain, Denies irregular heart rhythm and Denies leg edema Resp Reports as per HPI and Reports no additional complaints GI Reports no additional complaints Reports no additional complaints Musc Reports back pain and Reports arthralgias Skin/Breast Reports system reviewed and no additional complaints, except as documented Neuro Reports no additional complaints Psych Reports no additional complaints Endo Reports no additional complaints Leo/Lymph Reports no additional complaints Physical Exam Vital Signs: Last Vital Signs Pulse 77 01/21/25 13:47 BP 119/77 01/21/25 13:47 Pulse Ox 97 01/21/25 13:47 Oxygen Delivery Method Room Air 01/21/25 13:47 BMI result Body Mass Index 29.6 Const General: healthy appearing, comfortable, no acute distress, alert and awake Orientation/consciousness: patient oriented x3 HEENT Head: Yes normal to inspection General nose exam: No nasal polyps present, No nasal discharge present and Other nasal findings present (Only mild bilateral nasal congestion) Face and sinus: Yes sinuses nontender Mouth: oropharynx normal Throat: Yes posterior oropharynx normal Eyes General: appearance normal, both eyes and all related structures Neck Neck: Yes normal visual inspection, Yes no lymphadenopathy, Yes trachea midline and Yes no JVD Thyroid: Thyroid normal Chest Chest palpation & inspection: normal inspection of the chest, normal palpation of entire chest wall and no tenderness Resp Effort & Inspection: normal respiratory effort Auscultation: clear to auscultation bilaterally, no crackles and no wheezes Percussion: percussion normal Cardio Palpation: normal PMI Rate: regular rate Rhythm: regular rhythm Heart sounds: no gallops and no murmurs Peripheral pulses: Peripheral pulses 2+ throughout GI Palpation (GI): Soft to palpation, nontender, No hepatosplenomegaly present and no masses Auscultation: normal bowel sounds Back/Spine/Pelvis Thoracic/Lumbar Spine: thoracic and lumbar spine normal to inspection and thoraco-lumbar ROM limited Skin General skin exam: no rashes or lesions noted Neuro General: patient oriented x3 and no focal motor deficits Cranial nerves: Yes CN's II-XII intact bilaterally Extrem General: Yes normal to inspection, Yes no clubbing, cyanosis or edema, Yes no calf tenderness and Yes normal gait Psych Appearance: grossly normal and well kempt Speech and movement: Normal speech and movement present Assessment & Plan Assessment & Plan (1) Asthma: Comment: Chronic intermittent bronchial asthma well controlled, She does have history of seasonal flare up, mainly due to allergies. Seems well controlled with the current medical regimen. Code(s): J45.909 - Unspecified asthma, uncomplicated Category: Medical Plan: Advised to continue using Advair 250-50 1 inhalation b.i.d.. Albuterol HFA 2 puffs Q 4-6 hours p.r.n. Also has nebulizer at home and may use albuterol solution 2.5 mg in the nebulizer Q 4-6 hours p.r.n. when at home. (2) Allergic rhinitis: Comment: She has chronic nasal allergies, around the year, worse in the summer months. At present she is fairly stable . Code(s): J30.9 - Allergic rhinitis, unspecified Category: Medical Plan: Continue montelukast 10 mg daily. Flonase-52 sprays. In each nostril daily Also ipratropium bromide solution 2 spray intranasal t.i.d. Coding Level of Care Code Est Pt Level 3 (84688) Diagnoses Asthma J45.909 Allergic rhinitis J30.9
--- OUTSIDE RECORDS SUMMARY | 2025-01-21 16:47 | XMS_ITS | Encounter Summary ---
Author Organization [employer] Address [address] [place] [address] [address] [place] [address] Care Team Providers Care Gaming Cage Worker Name Role Phone Name, Miah ZUÑIGA Primary Care Provider [phone] Encounter Details Date Type Department Care Team ([facility] st Contact Info) Description 05/02/2022 Abstract [facility] [address] [place] [address] Jose Fuentes DDS [address] [place] [address] Social History Tobacco Use Types Packs/Day Years Used Date Smoking Tobacco: Never Assessed Comments Unknown Sex and Gender Information Value Date Recorded Sex Assigned at Female 03/13/2022 10:29 AM EDT Legal Sex Female 10:29 AM EDT Gender Identity Female 03/13/2022 10:29 AM EDT Sexual Orientation Straight 03/13/2022 10 :29 AM EDT documented as of this encounter Plan of Treatment Not on file documented as of this encounter Visit Diagnoses Not on filedocumented in this encounter Care Teams Gaming Cage Worker Relationship Specialty Start Date End Date Name, MD Miah [address] [place] [address] PCP - General Family Medicine 02/25/16 documented as of this encounter
--- OUTSIDE RECORDS SUMMARY | 2025-01-21 16:47 | XMS_ITS | Clinical Summary ---
Author Organization [employer] Address [address] [place] [address] 7t [place] [address] Care Team Providers Care Turf And Grounds Supervisor Name Role Phone Name, Miah ZUÑIGA Primary Care Provider [phone] Allergies Active Allergy Reactions Criticality Noted Date Comments Aspirin 10/10/2016 Other reaction(s): Rash Penicillins 05/10/2015 Other reaction(s): Unknown Vancomycin 10/10/2016 Medications norethindrone (Micronor) 0.35 MG tablet Take 1 tablet by mouth in the morning. 3 Active Ventolin HFA 108 (90 Base) MCG/ACT inhaler INHALE 2 PUFF EVERY 4 TO 6 HOURS NEEDED FOR FOR WHEEZING 4 Active Advair Diskus 250-50 MCG/ACT aerosol powder Inhale 1 Dose 2 times daily. rinse mouth after use 4 Active montelukast (Singulair) 10 MG tablet Take 10 mg by mouth at bedtime. Active DULoxetine (Cymbalta) [address] capsule [...] WITH WATER 120 mL 3 5 Active VitaJoy Daily D Gummies 25 MCG (1000 UT) chewable tabletIndicatio ns:Vitamin D deficiency TAKE 1 GUMMY BY MOUTH IN THE MORNING 90 tablet 3 5 Active cetirizine (ZyrTEC) 10 MG tablet Take 1 tablet (10 mg) by mouth Once per day. 30 tablet 2 5 Active ipratropium (Atrovent) 0.06 % nasal sprayIndication s:Other chronic pain SPRAY 2 SPRAYS INTO EACH NOSTRIL 3 TIMES A DAY 15 mL 1 5 Active pregabalin (Lyrica) 150 MG capsuleIndicati ons:Fibromyalgi a TAKE 1 CAPSULE BY MOUTH THREE TIMES A DAY 90 capsule 5 Active SUMAtriptan (Imitrex) 25 MG tabletIndicatio ns:Pain TAKE 1 TABLET AT ONSET OF MIGRAINE, MAY REPEAT IN 2 HOURS IF NEEDED. MAX 8 TABS/24 HOURS 10 tablet 2 5 Active cyclobenzaprine (Flexeril) 10 MG tabletIndicatio ns:Fibromyalgia TAKE 1 TABLET BY MOUTH IN THE MORNING, NOON AND BEDTIME NEEDED FOR MUSCLE SPASM 90 tablet 5 Active hydrocortisone 2.5 % cream APPLY 1 APPLICATION BY TOPICAL ROUTE 2 TIMES EVERY DAY 28 g 5 Active Active Problems Problem Noted Date Diagnosed Date Mixed anxiety and depressive disorder 07/10/2022 Vitamin D deficiency 06/06/2019 Fibromyalgia 06/04/2017 Migraine 06/04/2017 Carpal tunnel syndrome 06/05/2016 Asthma 05/10/2015 Resolved Problems Problem Noted Date Diagnosed Date Resolved Date Numbness of upper limb 03/06/201609/05 Hand muscle weakness 03/06/2016 024 Encounters Date Type Department Care Team Description 12/10/2024 Refill [facility] [address] [place], [place] [phone] NameMiah MD Pain; Fibromyalgia 11/13/2024 Telephone [facility] [address] [place], [place] [phone] Ronald Lopez MA january recalls 11/09/2024 Refill [facility] [address] [place] [address] NameMiah MD Fibromyalgia from Last 3 Months Immunizations Immunization Administration Dates Next Due Pneumococcal Conjugate PCV 20 09/06/2023 Pneumococcal Polysaccharide PPSV23 06/04/2017 TD (adult), 2 Lf tetanus tox oid, preservative free, adsorbed 10/22/2010 Tdap 08/17/2021,11/23/2014 Family History Medical History Relation Name Comments Lung cancer Maternal Grandfather Lung cancer Maternal Grandmother Relation Name Status Comments Maternal Grandfather Maternal Grandmother Social History Tobacco Use Types Packs/Day Years Used Date Smoking Tobacco: Never Passive Smoke Exposure: Never Smokeless Tobacco: Never Tobacco Cessation:Counseling Given: Not Answered Alcohol Use Standard Drinks/Week Comments Never 0 (1 standard drink = 0.6 oz pur e alcohol) Depression Answer Date Recorded Patient Health Questionnaire-9 Score 5 09/30/2024 Patient Health Questionnaire-9 Score 5 09/30/2024 Last PHQ-9: Questionnaire Data Not on file 0 09/30/2024 Housing Stability Answer Date Recorded What is your housing situation today? I have scott zamora 09/22/[address] you li ve. Do you have problems with any of the following? None of the above 09/22/2024 Food Insecurity Answer Date Recorded Within the past 12 months, y ou worried that your food would run out before you got money to buy more: Never True 09/22/2024 Within the past 12 months,th e food you bought just didn't last and you didn't have enough money to get more: Never True 04/2025 Transportation Answer Date Recorded In the past 12 months, has l ack of transportation kept you from medical appts, meetings, work or from getting things needed for daily living? No 09/22/2024 Utilities Answer Date Recorded In the past 12 months, has t he electric, gas, oil or water company threatened to shut off services in your home? No 09/22/2024 Depression Answer Date Recorded Patient Health Questionnaire-2 Score 0 09/30/2024 Internet Access Answer Date Recorded Internet Access Q1 Yes 09/22/2024 Internet Access Q2 Not on file 09/22/2024 Comments Unknown Sex and Gender Information Value Date Recorded Sex Assigned at Female 03/13/2022 10:29 AM EDT Legal Sex Female 10:29 AM EDT Gender Identity Female 03/13/2022 10:29 AM EDT Sexual Orientation Straight 03/13/2022 10 :29 AM EDT Last Filed Vital Signs Vital Sign Reading Time Taken Comments Blood Pressure 129/76 09/30/2024 2:07 PM EDT Pulse 83 09/30/2024 2:07 PM EDT Temperature 36.9 C (98.5 F) 09/30/2024 2:07 PM EDT Respiratory Rate 18 09/30/2024 2:07 PM EDT Oxygen Saturation 97% 09/30/2024 2:07 PM EDT Inhaled Oxygen Concentration - - Weight 78.7 kg (173 lb 8 oz) 09/30/2024 2:07 PM EDT Height 159.6 cm (5' 2.85 ) 09/30/2024 2:07 PM ED T Body Mass Index 30.88 09/30/2024 2:07 PM EDT Plan of Treatment Health Maintenance Due Date Last Done Comments Dental Prophylaxis 1985 Family Planning (PISQ) 2001 HPV Vaccines (1 - 3-dose series) 2001 Hepatitis B Vaccines (1 of 3 - 19+ 3-dose series) 2005 Dental Oral Exam 04/13/2017 10/10/2016 Dental X-Ray: Bitewings 10/11/2017 10/10/2016 COVID-19 Vaccine ( - 2024-2 6 season) 2025 10/25/2020, 09/27/2020 Influenza Vaccine (#1) 2025 Dental X-Ray: Full Mouth 04/13/2025 022, 10/10/2016 Pap Smear 08/15/2025 08/15/2022 SDOH Screening 09/22/2025 09/22/2024 Alcohol/Substance Use Screening 09/30/2025 09/30/2024 Depression Screening 09/30/2025 09/30/2024, 09/30/2024 Disability Screening 09/30/2025 09/30/2024 Tobacco Screening 09/30/2025 09/30/2024 Cervical Cancer Screening 08/16/2027 HPV/Cotest 08/16/2027 08/15/2022 DTaP/Tdap/Td Vaccines (3 - T d or Tdap) 08/18/2031 08/17/2021, 11/23/2014, 10/22/2010 Zoster Vaccines (1 of 2) 2036 RSV Patients and Patients Aged 60 years or older (1 - 1-dose 75+ series) 2061 HIV Screening Completed 06/12/2019 Hepatitis C Screening Completed 06/12/2019 Pneumococcal Vaccine: Pediatrics (0 to 5 Years) and At-Risk Patients (6 to 49) Years Completed 09/06/2023, 06/04/2017 HIB Vaccines Aged Out No longer eligi ble based on patient's age to complete this topic Hepatitis A Vaccines Aged Out No long er eligible based on patient's age to complete this topic IPV Vaccines Aged Out No longer eligi ble based on patient's age to complete this topic Meningococcal B Vaccine Aged Out No l onger eligible based on patient's age to complete [...] HPV nRNA E6/E7 Not Detected Not Detected [facility] Comment:Methodology: Transcr iption-Mediated AmplificationThis assay detects E6/E7 viral messenger RNA (mRNA) from 14high-risk HPV types (16,18,31,33,35,39,45,51,52,56,58,59,66,68).Cervical sources are required for HPV testing.If a vaginal source from a patient who has had atotal hysterectomy with removal of cervix wassubmitted, please contact the testing laboratoryfor alternative testing options.For additional information, please refer [email or web address]/faq/NJO243t2(This link if provided for information/educational purposes only.)THIS TEST WAS PERFORMED AT:[facility] [place] [id number] SEVILLA MD HPV mRNA E6/E7 [facility] HPV 16 RNA [facility] HPV 18/45 RNA [facility] 08/15/2022 11:5 7 AM EDT 08/16/2022 3:45 PM EDT [facility] External Provider LAB CYT OLOGY ORDERABLES Final Result [facility] [address] [place] [address] [phone] * Pap Smear (08/15/2022 11:57 AM EDT) 08/15/2022 11:5 7 AM EDT 08/16/2022 3:45 PM EDT Narrative [facility] - 08/21/2022 2:39 PM EDT ----- ------- Name: Dedra Rojo Age/Sex: 37/F : 1985 Unit#: [id number] [facility] Status: DEP REF Location: [facility] Disch: ----- ------- SPEC : [id number] RECD: 08/16/22-154 STATUS: WAYNE MENCHACA NUM: [id number] MARYAM: 08/15/22-[address] ENTERED: 08/16/22-1636 SP TYPE: Pap Smr OTHR DR: Miah Albarran MD ORDERED: Pap Smear Interpretation Satisfactory for evaluation. Negative for intraepithelial lesion or malignancy. HPV mRNA E6/E7: NOT DETECTED This assay detects E6/E7 viral messenger RNA (mRNA) from 14 high-risk HPV types (16, 18, 31, 33, 35, 39, 45, 51, 52, 56, 58, 59, 66, 68) HPV testing performed by [facility], [place], [place]. See reference laboratory portion of the EMR for entire report. Clinical Information LMP: 08/06/22 Previous PAP test: 02/12/18, WNL Material Received ThinPrep-Cervical Copies To: Miah Albarran MD [address] [place] [id number] Kenyetta Marquez [address] [place] [phone] ----- ------- Signed (signature on file) Geri Sparks 08/21/22 1439 ----- ------- END OF REPORT [facility] External Provider LAB CYT OLOGY ORDERABLES Final Result [facility] [address] [place] [address] [phone] * HEPATITIS C ANTIBODY (06/12/2019 12:40 PM EST) Pathologist [facility] HEPATITIS C ANTIBODY NONREACTIVE NONREACTIVE [facility] Comment: Antibodies to HCV not detected; does not exclude early acute HCV infection. 06/12/2019 12:4 0 PM EST Historical Provider MD HISTORICAL/NON ORDERABLE LABS Final Result Performing Organization Address [facility] Co de Phone Number [facility] [address] * HIV AB/AG (06/12/2019 12:40 PM EST) Pathologist [facility] HIV AG/AB NONREACTIVE [facility] Comment: HIV-1 p24 Ag and/or HIV-1/HIV-2 Ab not detected. A test result that is nonreactive does not exclude the possibility of exposure to or infection with HIV-1 and/or HIV-2. Nonreactive results in this assay for individuals with prior exposure to HIV-1 and/or HIV-2 may be due to antigen and antibody levels that are below the limit of detection of this assay. The [facility] HIV Ag/Ab Combo assay result and supplemental assay results should be interpreted in conjunction with the patient's clinical presentation, history and other laboratory results. If the results are inconsistent with clinical evidence, additional testing is suggested to confirm the result. 06/12/2019 12:4 0 PM EST us Historical Provider HISTORICAL/NON ORDERABLE LABS Final Result [facility] [address] from Last 3 Months or Most Recently Relevant to Health Maintenance Insurance C[employer]ICA[employer] STAND ADULT Care Teams Turf And Grounds Supervisor Relationship Specialty Start Date End Date Name, MD Miah [address] [place] [address] PCP - General Family Medicine 02/25/16
--- OUTSIDE RECORDS SUMMARY | 2025-01-21 16:47 | XMS_ITS | Encounter Summary ---
Author Organization [employer] Address [address] [facility] 7 [place] [address] Care Team Providers Care Real Estate Officer Name Role Phone Name, Miah ZUÑIGA Primary Care Provider [phone] Reason for Visit * Reason Onset Date Comments Med Refill 01/15/2024 Encounter Details Date Type Department Care Team ([facility] st Contact Info) Description 01/15/2024 Refill [facility] [address] [place], [place] [phone] Name, MD Miah [address] [place] [address] Other chronic pain Social History Tobacco Use [...] documented as of this encounter Care Teams Real Estate Officer Relationship Specialty Start Date End Date Name, MD Miah [address] [place] [address] PCP - General Family Medicine 02/25/16 documented as of this encounter
--- OUTSIDE RECORDS SUMMARY | 2025-01-21 16:47 | XMS_ITS | Encounter Summary ---
Author Organization [employer] Address [address] [facility] 7t [place] [address] Care Team Providers Care Rn Night Name Role Phone Name, Miah ZUÑIGA Primary Care Provider [phone] Encounter Details Date Type Department Care Team (Late st Contact Info) Description 08/01/2022 Orders Only [facility] [address] [place], [place] [phone] Edita Vee LPN Social History Tobacco Use [...] documented as of this encounter Care Teams Rn Night Relationship Specialty Start Date End Date Name, MD Miah [address] [place] [address] PCP - General Family Medicine 02/25/16 documented as of this encounter
--- OUTSIDE RECORDS SUMMARY | 2025-01-21 16:47 | XMS_ITS | Encounter Summary ---
Author Organization [employer] Address [address] [facility] 7t [place] [address] Care Team Providers Care Shale Processing Technician Name Role Phone Name, Miah ZUÑIGA Primary Care Provider [phone] Reason for Visit * Reason Comments Med Refill Encounter Details Date Type Department Care Team ([facility] Contact Info) Description 06/16/[address] [facility] [address] [place], [place] [phone] Name, MD Miah [address] [place] [address] Other chronic pain Social History Tobacco Use [...] documented as of this encounter Care Teams Shale Processing Technician Relationship Specialty Start Date End Date Name, MD Miah [address] [place] [address] PCP - General Family Medicine 02/25/16 documented as of this encounter
--- OUTSIDE RECORDS SUMMARY | 2025-01-21 16:47 | XMS_ITS | Encounter Summary ---
Author Organization [employer] Address [address] [facility] [address] 7[address] [place] [address] Care Team Providers Care History Teacher Name Role Phone Name, Miah ZUÑIGA Primary Care Provider [phone] Reason for Visit * Reason Comments Med Refill Encounter Details Date Type Department Care Team ([facility] Contact Info) Description 08/03/2023 Refill [facility] [address] [place] [address] Izabella Haines MD [address] [place] [address] Social History Tobacco Use Types Packs/Day Years [...] documented as of this encounter Care Teams History Teacher Relationship Specialty Start Date End Date Name, MD Miah [address] [place] [address] PCP - General Family Medicine 02/25/16 documented as of this encounter
--- OUTSIDE RECORDS SUMMARY | 2025-01-21 16:47 | XMS_ITS | Encounter Summary ---
Author Organization [employer] Address [address] [facility] [place] [address] Care Team Providers Care Special Needs Librarian Name Role Phone Name, Miah ZUÑIGA Primary Care Provider [phone] Reason for Visit * Reason Comments Med Refill Encounter Details Date Type Department Care Team ([facility] Contact Info) Description 05/13/2024 Refill [facility] [address] [place] [address] Izabella Haines MD [address] [place] [address] Social History Tobacco Use Types Packs/Day Years [...] documented as of this encounter Care Teams Special Needs Librarian Relationship Specialty Start Date End Date Name, MD Miah [address] [place] [address] PCP - General Family Medicine 02/25/16 documented as of this encounter
--- OUTSIDE RECORDS SUMMARY | 2025-01-21 16:47 | XMS_ITS | Encounter Summary ---
Author Organization [employer] Address [address] [facility] 7t [place] [address] Care Team Providers Care Pearler Name Role Phone Name, Miah ZUÑIGA Primary Care Provider [phone] Encounter Details Date Type Department Care Team (Late st Contact Info) Description 07/04/2022 Orders Only [facility] & [facility] [address] [place] [address] Edita Vee LPN Social History Tobacco Use [...] on filedocumented in this encounter Care Teams Pearler Relationship Specialty Start Date End Date Name, MD Miah [address] [place] [address] PCP - General Family Medicine 02/25/16 documented as of this encounter
--- OUTSIDE RECORDS SUMMARY | 2025-01-21 16:47 | XMS_ITS | Encounter Summary ---
Author Organization [employer] Address [address] [place] [address] 7 [place] [address] Care Team Providers Care Naphthalene Operator Name Role Phone Name, Miah ZUÑIGA Primary Care Provider [phone] Reason for Visit * Reason Comments Med Refill Encounter Details Date Type Department Care Team ([facility] Contact Info) Description 11/22/2022 Refill [facility] [address] [place] [address] [facility] [address] [place] [address] Pain Social History Tobacco Use Types Packs/Day [...] documented as of this encounter Care Teams Naphthalene Operator Relationship Specialty Start Date End Date Name, MD Miah [address] [place] [address] PCP - General Family Medicine 02/25/16 documented as of this encounter
--- OUTSIDE RECORDS SUMMARY | 2025-01-21 16:47 | XMS_ITS | Encounter Summary ---
Author Organization [employer] Address [address] [facility] 7t [place] [address] Care Team Providers Care Wire Dropper Name Role Phone Name, Miah ZUÑIGA Primary Care Provider [phone] Reason for Visit * Reason Comments Med Refill Encounter Details Date Type Department Care Team ([facility] st Contact Info) Description 02/20/2023 Refill [facility] [address] [place], [place] [phone] Name, MD Miah [address] [place] [address] Pain Social History Tobacco Use Types Packs/Day [...] documented as of this encounter Care Teams Wire Dropper Relationship Specialty Start Date End Date Name, MD Miah [address] [place] [address] PCP - General Family Medicine 02/25/16 documented as of this encounter
--- OUTSIDE RECORDS SUMMARY | 2025-01-21 16:47 | XMS_ITS | Encounter Summary ---
Author Organization [employer] Address [address] [place] [address] 7t [place] [address] Care Team Providers Care Agricultural Produce Washer Name Role Phone Name, Miah ZUÑIGA Primary Care Provider [phone] Encounter Details Date Type Department Care Team ([facility] st Contact Info) Description 06/21/2022 Orders Only [facility] [address] [place] [address] Eliz Mendoza LPN Social History Tobacco Use [...] on filedocumented in this encounter Care Teams Agricultural Produce Washer Relationship Specialty Start Date End Date Name, MD Miah [address] [place] [address] PCP - General Family Medicine 02/25/16 documented as of this encounter
== END 2025-01-21 13:59 | disposition home or self-care (01) ==
LOC: HO.HPS 13:42
PROVIDERS: PCP Internal Medicine Geriatric Medicine; Visit Provider Internal Medicine
DX: J45.909 Unspecified asthma, uncomplicated (principal); J30.9 Allergic rhinitis, unspecified
CPT/HCPCS: 99213

== ENCOUNTER → 2025-01-21 13:41 | Outpatient (BNVA) | payer MEDICAID, SELFPAY | PROVIDERS: PCP Internal Medicine Geriatric Medicine; Visit Provider Internal Medicine | DX: J45.909 Unspecified asthma, uncomplicated (principal); Z79.899 Other long term (current) drug therapy | CPT/HCPCS: 99212 ==

== ENCOUNTER 2025-03-13 11:22 | Outpatient (REF) | payer MEDICAID, SELFPAY | END 2025-03-13 11:23 | disposition home or self-care (01) | LOC: HO.LAB 11:22 | PROVIDERS: PCP Internal Medicine Geriatric Medicine; Visit Provider Advanced Practice Midwife | DX: N91.1 Secondary amenorrhea (principal); N88.2 Stricture and stenosis of cervix uteri; Z79.3 Long term (current) use of hormonal contraceptives | CPT/HCPCS: 36415; 84702; 99212 ==

== ENCOUNTER 2025-03-13 11:22 | Outpatient (AMB) | payer MEDICAID, SELFPAY ==
--- NOTE | 2025-03-13 11:33 | MHC.OFFVIS ---
Vital Signs 03/13/25 11:44 Height 5 ft 3 in Weight 167 lb BMI 29.6 BP 118/72 Intake Visit Reasons: pelvic pain Intake Note: Pelvic pain on and off since last menstrual back in December. Industrial Economics Teacher: Industrial Economics Teacher Present (Sintia) Accompanied by: Spouse Allergies aspirin Allergy (Severe, Verified 03/13/25 11:44) hives penicillin V Allergy (Severe, Verified 03/13/25 11:44) anaphylaxis, anaphylaxis, rash vancomycin Allergy (Severe, Verified 03/13/25 11:44) anaphylaxis Medication List - Last Reconciled 03/13/25 by Kenyetta Marquez CNM albuterol sulfate 2.5 mg (3 mL) inhalation Q6H PRN albuterol sulfate 90 mcg/actuation (Ventolin HFA) 2 puffs PO Q4-6H PRN cetirizine (Zyrtec) 10 mg PO DAILY PRN cholecalciferol (vitamin D3) 25 mcg PO DAILY duloxetine (Cymbalta) 60 mg PO BID fluticasone propion-salmeterol 250-50 mcg/dose (Advair Diskus) 1 ea PO BID fluticasone propionate 50 mcg/actuation 2 sprays intranasal DAILY ipratropium bromide 2 sprays intranasal TID montelukast 10 mg PO BEDTIME norethindrone (contraceptive) 0.35 mg PO DAILY pregabalin 150 mg PO TID sumatriptan succinate 0 mg PO trazodone 50 mg PO BEDTIME PRN Is last menstrual period known: Yes Last menstrual period: 12/16/24 Post menopausal: No Patient : No HPI HPI pelvic pain: Details: Patient has history of abnormal Pap smear but does not remember if she ever had a procedure done. She has a history of 2 C sections done here at this hospital. She had a Mirena some years ago. She remembers having some sort of cyst in the past as well. She has missed periods in the past and needed blood tests to reassure herself that she was not . She has been on norethindrone for some time continuously now because she gets migraine headaches she denies any missed pills at all her last menstrual period was December 16 to December 21. Sometimes they are a little heavier than others but never very heavy at the most she might need to change her pad about 3 times a day. She has not had a periods since December denies any missed pills. She brought her into this visit as well. She takes naproxen for pain and she also takes Tylenol she just takes it when she needs it not all the time. [facility] Medical History Simple cystoma of ovary Migraine with aura Asthma Allergic rhinitis Surgical History Hx of section Social History Alcohol intake: never Patient Tobacco Use Status: Never used Tobacco Patient : No Sexual orientation: Straight/Heterosexual Female Reproductive History Menstrual Age of Menarche: 13 Duration of menses: 6-7 days Date of last menstrual period: 12/16/24 control method: pills Total pregnancies: 4 Full term: 2 Date of last pap smear: 08/15/22 (negative pap smear, negative hpv ) History of abnormal pap smear: Yes (CIN1 2010,2011) Physical Exam Vital Signs: Last Vital Signs BP 118/72 03/13/25 11:44 BMI result Body Mass Index 29.6 Other: External exam within normal limits vagina pink and moist cervix multiparous pink smooth extremely tightly closed cervical os does not even admit Q-tip. It did bleed with touch of Q-tip patient has history of abnormal Pap but does not remember having a procedure done to her cervix it feels scarred as if it was post LEEP. Uterus is small firm slightly fixed anteriorly nontender on exam adnexa is nontender. Assessment & Plan Assessment & Plan (1) Amenorrhea due to oral contraceptive: Code(s): N91.2 - Amenorrhea, unspecified; Z79.3 - penitentiary (current) use of hormonal contraceptives Category: Medical (2) Amenorrhea, secondary: Code(s): N91.1 - Secondary amenorrhea Category: Medical (3) Pelvic pain: Comment: Since LMP 12/16-12/21/24. Code(s): R10.2 - Pelvic and perineal pain Category: Medical (4) Stricture and stenosis of cervix: Comment: Ce.rvical os does not even admit Q-tip today 03/13/2025. Patient does not remember if she had a LEEP procedure though cervix gives the appearance of status post LEEP Code(s): N88.2 - Stricture and stenosis of cervix uteri Category: Medical Plan Reviewed her history with her she does not remember having a LEEP or any procedure to her cervix her cervix feels very tightly stenotic only closed. We will get a quantitative HCG though I am not expecting it to be positive. As well as a pelvic ultrasound to assess for any abnormalities and we will have follow-up visit after she is going to continue on her pills. And we will see her after the ultrasound. Discussed the shorter acting ibuprofen versus longer acting naproxen and neither should ever be taken on an empty stomach and that both function better usually for menstrual type cramping pain Orders: Orders HCG Quantitative Today N91.1 - Secondary amenorrhea, N91.2 - Amenorrhea, unspecified, R10.2 - Pelvic and perineal pain, Z79.3 - penitentiary (current) use of hormonal contraceptives US pelvic and transvaginal Today N88.2 - Stricture and stenosis of cervix uteri, N91.1 - Secondary amenorrhea, N91.2 - Amenorrhea, unspecified, R10.2 - Pelvic and perineal pain, Z79.3 - watermaster (current) use of hormonal contraceptives Coding Level of Care Code Est Pt Level 3 (74018) Diagnoses Amenorrhea due to oral contraceptive N91.2; Z79.3 Amenorrhea, secondary N91.1 Pelvic pain R10.2 Stricture and stenosis of cervix N88.2
[2025-03-13 11:44] VITALS: BP 118/72; BMI 29.6
--- OUTSIDE RECORDS SUMMARY | 2025-03-13 13:00 | XMS_ITS | Encounter Summary ---
Author Organization [employer] Address [address] [facility] 7t [place] [address] Care Team Providers Care Pershing Missile Crewmember Name Role Phone Name, Miah ZUÑIGA Primary Care Provider [phone] Reason for Visit * Reason Comments Med Refill Encounter Details Date Type Department Care Team ([facility] Contact Info) Description 05/13/2024 Refill [facility] [address] [place] [address] Izabella Haines MD [address] [place] [address] Social History Tobacco Use Types Packs/Day Years [...] documented as of this encounter Care Teams Pershing Missile Crewmember Relationship Specialty Start Date End Date Name, MD Miah [address] [place] [address] PCP - General Family Medicine 02/25/16 documented as of this encounter
--- OUTSIDE RECORDS SUMMARY | 2025-03-13 13:00 | XMS_ITS | Encounter Summary ---
Author Organization [employer] Address [address] [facility] 7t [place] [address] Care Team Providers Care Head Teller Name Role Phone Name, Miah ZUÑIGA Primary Care Provider [phone] Encounter Details Date Type Department Care Team (Late st Contact Info) Description 08/01/2022 Orders Only [facility]ED[facility] [address] [place], [place] [phone] Edita Vee LPN Social History Tobacco Use [...] as of this encounter Care Teams Head Teller Relationship Specialty Start Date End Date Name, MD Miah [address] [place] [address] PCP - General Family Medicine 02/25/16 documented as of this encounter
--- OUTSIDE RECORDS SUMMARY | 2025-03-13 13:00 | XMS_ITS | Clinical Summary ---
Author Organization [employer] Address [address] [place] [address] 7t [place] [address] Care Team Providers Care Commercial Photographer Name Role Phone Name, Miah ZUÑIGA Primary Care Provider [phone] Allergies Active Allergy Reactions Criticality Noted Date Comments Aspirin 10/10/2016 Other reaction(s): Rash Penicillins 05/10/2015 Other reaction(s): Unknown Vancomycin 10/10/2016 Medications norethindrone (Micronor) 0.35 MG tablet Take 1 tablet by mouth in the morning. 08/16/19 23 Active Ventolin HFA 108 (90 Base) MCG/ACT [...] BEDTIME 30 tablet 3 07/15/19 25 Active VitaJoy Daily D Gummies 25 MCG (1000 UT) chewable tabletIndicati ons:Vitamin D deficiency TAKE 1 GUMMY BY MOUTH IN THE MORNING 90 tablet 3 09/04/19 25 Active SUMAtriptan (Imitrex) 25 MG tabletIndicati ons:Pain TAKE 1 TABLET AT ONSET OF MIGRAINE, MAY REPEAT IN 2 HOURS IF NEEDED. MAX 8 TABS/24 HOURS 10 tablet 2 12/11/19 25 Active cetirizine (ZyrTEC) 10 MG tablet TAKE 1 TABLET BY MOUTH EVERY DAY 90 tablet 02/10/20 25 Active hydrocortisone 2.5 % cream APPLY TO AFFECTED AREA TWICE A DAY 28 g 02/26/20 25 Active ipratropium (Atrovent) 0.06 % nasal sprayIndicatio ns:Other chronic pain SPRAY 2 SPRAYS INTO EACH NOSTRIL 3 TIMES A DAY 15 mL 1 02/25/20 25 Active ketoconazole (NIZOral) 2 % shampooIndicat ions:Seborrhei c dermatitis USE DAILY AND LATHER ONTO AFFECTED AREA(S), LEAVE IN PLACE FOR 5 MINUTES, THEN RINSE OFF WITH WATER 120 mL 3 02/25/20 25 Active cyclobenzaprin e (Flexeril) 10 MG tabletIndicati ons:Fibromyalg ia TAKE 1 TABLET BY MOUTH IN THE MORNING, NOON AND BEDTIME NEEDED FOR MUSCLE SPASM 90 tablet 02/25/20 25 Active pregabalin (Lyrica) 150 MG capsuleIndicat ions:Fibromyal linda TAKE 1 CAPSULE BY MOUTH THREE TIMES A DAY 90 capsule 03/13/20 25 Active ketoconazole (NIZOral) 2 % shampooIndicat ions:Seborrhei c dermatitis USE DAILY AND LATHER ONTO AFFECTED AREA(S), LEAVE IN PLACE FOR 5 MINUTES, THEN RINSE OFF WITH WATER 120 mL 3 07/15/19 25 025 Discontinued ipratropium (Atrovent) 0.06 % nasal sprayIndicatio ns:Other chronic pain SPRAY 2 SPRAYS INTO EACH NOSTRIL 3 TIMES A DAY 15 mL 1 10/02/19 25 025 Discontinued cyclobenzaprin e (Flexeril) 10 MG tabletIndicati ons:Fibromyalg ia TAKE 1 TABLET BY MOUTH IN THE MORNING, NOON AND BEDTIME NEEDED FOR MUSCLE SPASM 90 tablet 12/11/19 25 025 Discontinued hydrocortisone 2.5 % cream APPLY 1 APPLICATION BY TOPICAL ROUTE 2 TIMES EVERY DAY 28 g 12/11/19 25 025 Discontinued pregabalin (Lyrica) 150 MG capsuleIndicat ions:Fibromyal linda TAKE 1 CAPSULE BY MOUTH THREE TIMES A DAY 90 capsule 01/24/20 25 025 Discontinued Active Problems Problem Noted Date Diagnosed Date Mixed anxiety and depressive disorder 07/10/2022 Vitamin D deficiency 06/06/2019 Fibromyalgia 06/04/2017 Migraine 06/04/2017 Carpal tunnel syndrome 06/05/2016 Asthma 05/10/2015 Resolved Problems Problem Noted Date Diagnosed Date Resolved Date Numbness of upper limb 03/06/201609/05 Hand muscle weakness 03/06/2016 024 Encounters Date Type Department Care Team Description 03/12/2025 Refill [facility] [address] [place] [address] Miah Albarran MD Fibromyalgia 02/27/2025 Telephone [facility] [address] [place] [address] Ronald Lopez MA dec recalls 02/24/2025 Refill [facility] [address] [place] [address] NameMiah MD Other chronic pain; Seborrheic dermatitis; Fibromyalgia 02/24/2025 Refill [facility] [address] [place] [address] Diandra Latham MD 02/07/2025 Refill [facility] [address] [place] [address] Miah Albarran MD 01/22/2025 Refill [facility] [address] [place] [address] Miah Albarran MD Fibromyalgia from Last 3 Months Immunizations [...] Bitewings 10/11/2017 10/10/2016 COVID-19 Vaccine (3 - 2024-2 6 season) 2025 10/25/2020, 09/27/2020 [...] HPV nRNA E6/E7 Not Detected Not Detected [facility] Comment:Methodology: Transcr iption-Mediated AmplificationThis assay detects E6/E7 viral messenger RNA (mRNA) from 14high-risk HPV types (16,18,31,33,35,39,45,51,52,56,58,59,66,68).Cervical sources are required for HPV testing.If a vaginal source from a patient who has had atotal hysterectomy with removal of cervix wassubmitted, please contact the testing laboratoryfor alternative testing options.For additional information, please refer tohttp://education.[employer]/faq/CMK257e4(This link if provided for information/educational purposes only.)THIS TEST WAS PERFORMED AT:[employer] [place] [id number] SEVILLA MD HPV mRNA E6/E7 [facility] HPV 16 RNA TNP [facility] HPV 18/45 RNA TNP [facility] 08/15/2022 11:5 7 AM EDT 08/16/2022 3:45 PM EDT us [facility] External Provider LAB CYT OLOGY ORDERABLES Final Result [facility] [address] [place] [address] [phone] * Pap Smear (08/15/2022 11:57 AM EDT) 08/15/2022 11:5 7 AM EDT 08/16/2022 3:45 PM EDT Narrative [facility] - 08/21/2022 2:39 PM EDT ----- ------- Name: Dedra Rojo Age/Sex: 37/F : 1985 Unit#: [id number] Attend Dr: Kenyetta Marquez Timothy Re08/15/22 Status: DEP REF Location: [facility] Disch: ----- ------- SPEC : [id number] RECD: 08/16/22 STATUS: WAYNE MENCHACA NUM: [id number] MARYAM: 08/15/22-1157 [facility] ENTERED: 08/16/22-1 SP TYPE: Pap Smr OTHR DR: Miah Albarran MD ORDERED: Pap Smear Interpretation Satisfactory for evaluation. Negative for intraepithelial lesion or malignancy. HPV mRNA E6/E7: NOT DETECTED This assay detects E6/E7 viral messenger RNA (mRNA) from 14 high-risk HPV types (16, 18, 31, 33, 35, 39, 45, 51, 52, 56, 58, 59, 66, 68) HPV testing performed by [facility], [place], [place]. See reference laboratory portion of the EMR for entire report. Clinical Information LMP: 08/06/22 Previous PAP test: 02/12/18, WNL Material Received ThinPrep-Cervical Copies To: Miah Albarran MD [address] [place] [address] [place] [phone] ----- ------- Signed (signature on file) Geri A Bridger 08/21/22 1439 ----- ------- END OF REPORT [facility] External Provider LAB CYT [employer] ORDERABLES Final Result [facility] [address] [place] [address] [phone] * HEPATITIS C ANTIBODY (06/12/2019 12:40 PM EST) Pathologist [facility] HEPATITIS C ANTIBODY NONREACTIVE NON[facility]ACTIVE [facility] Comment: Antibodies to HCV not detected; does not exclude early acute HCV infection. 06/12/2019 12:4 0 PM EST Historical Provider HISTORICAL/NON ORDERABLE LABS Final Result Performing Organization Address [facility] Co de Phone Number [facility] [address] * HIV AB/AG (06/12/2019 12:40 PM EST) Pathologist [facility] HIV AG/AB NONREACTIVE NR FOUNDATI ON LAB [...] of detection of this assay. The [employer] HIV Ag/Ab Combo assay result and supplemental assay results should be interpreted in conjunction with the patient's clinical presentation, history and other laboratory results. If the results are inconsistent with clinical evidence, additional testing is suggested to confirm the result. 06/12/2019 12:4 0 PM EST Historical Provider HISTORICAL/NON ORDERABLE LABS Final Result Performing Organization Address [facility] Co de Phone Number [facility] [address] from Last 3 Months or Most Recently Relevant to Health Maintenance Insurance [facility] C3 DENTAL-[facility] MEDICAID STAND ADULT Care Teams Commercial Photographer Relationship Specialty Start Date End Date Name, MD Miah [address] [place] [address] PCP - General Family Medicine 02/25/16
--- OUTSIDE RECORDS SUMMARY | 2025-03-13 13:00 | XMS_ITS | Encounter Summary ---
Author Organization [employer] Address [address] [place] [address] 7 [place] [address] Care Team Providers Care Block Setter Gypsum Name Role Phone Name, Miah ZUÑIGA Primary Care Provider [phone] Reason for Visit * Reason Comments Med Refill Encounter Details Date Type Department Care Team ([facility] Contact Info) Description 11/22/2022 Refill [facility] [address] [place] [address] [facility] [address] [place] [address] Pain Social History Tobacco Use Types Packs/Day [...] documented as of this encounter Care Teams Block Setter Gypsum Relationship Specialty Start Date End Date Name, MD Miah [address] [place] [address] PCP - General Family Medicine 02/25/16 documented as of this encounter
--- OUTSIDE RECORDS SUMMARY | 2025-03-13 13:00 | XMS_ITS | Encounter Summary ---
Author Organization [employer] Address [address] [facility] 7t [place] [address] Care Team Providers Care Wireless Retail Manager Name Role Phone Name, Miah ZUÑIGA Primary Care Provider [phone] Encounter Details Date Type Department Care Team (Late st Contact Info) Description 07/04/2022 Orders Only [facility] [address] [place] [address] Edita Vee LPN Social History Tobacco Use [...] on filedocumented in this encounter Care Teams Wireless Retail Manager Relationship Specialty Start Date End Date Name, MD Miah [address] [place] [address] PCP - General Family Medicine 02/25/16 documented as of this encounter
--- OUTSIDE RECORDS SUMMARY | 2025-03-13 13:00 | XMS_ITS | Encounter Summary ---
Author Organization [employer] Address [address] [place] [address] 7t [place] [address] Care Team Providers Care Park Ranger Name Role Phone Name, Miah ZUÑIGA Primary Care Provider [phone] Encounter Details Date Type Department Care Team ([facility] st Contact Info) Description 06/21/2022 Orders Only [facility] [address] [place] [address] Eliz Mendoza LPN Social History Tobacco Use [...] on filedocumented in this encounter Care Teams Park Ranger Relationship Specialty Start Date End Date Name, MD Miah [address] [place] [address] PCP - General Family Medicine 02/25/16 documented as of this encounter
--- OUTSIDE RECORDS SUMMARY | 2025-03-13 13:00 | XMS_ITS | Encounter Summary ---
Author Organization [employer] Address [address] [facility] 7t [place] [address] Care Team Providers Care Associate Professor Of Geology Name Role Phone Name, Miah ZUÑIGA Primary Care Provider Reason for Visit * Reason Comments Med Refill Encounter Details Date Type Department Care Team ([facility] Contact Info) Description 06/16/2024 Refill [facility] [address] [place], [place] [phone] Name, MD Miah [address] [place] [address] Other chronic pain Social History Tobacco Use [...] is your housing situation today? I have csott zamora 09/06/[address] you [...] documented as of this encounter Care Teams Associate Professor Of Geology Relationship Specialty Start Date End Date Name, MD Miah [address] [place] [address] PCP - General Family Medicine 02/25/16 documented as of this encounter
--- OUTSIDE RECORDS SUMMARY | 2025-03-13 13:00 | XMS_ITS | Encounter Summary ---
Author Organization [employer] Address [address] [facility] 7t [place] [address] Care Team Providers Care Steel Inspector Name Role Phone Name, Miah ZUÑIGA Primary Care Provider [phone] Reason for Visit * Reason Comments Med Refill Encounter Details Date Type Department Care Team ([facility] Contact Info) Description 03/12/2025 Refill [facility] [address] [place], [place] [phone] Name, MD Miah [address] [place] [address] Fibromyalgia Social History Tobacco Use Types Packs/Day Years Used Date Smoking Tobacco: Never Passive Smoke Exposure: Never Smokeless Tobacco: Never Alcohol Use Standard [...] Diagnoses Diagnosis Fibromyalgia Unspecified myalgia and myositis documented in this encounter Additional Health Concerns Assessment Noted Time PHQ-9 Depression Total Score: 5 10/01/19 25 2:34 PM EDT documented as of this encounter Care Teams Steel Inspector Relationship Specialty Start Date End Date Name, MD Miah [address] [place] [address] PCP - General Family Medicine 02/25/16 documented as of this encounter
--- OUTSIDE RECORDS SUMMARY | 2025-03-13 13:00 | XMS_ITS | Encounter Summary ---
Author Organization [employer] Address [address] [facility] 7 [place] [address] Care Team Providers Care Sheetrock Applicator Name Role Phone Name, Miah ZUÑIGA Primary Care Provider [phone] Reason for Visit * Reason Onset Date Comments Med Refill 01/15/2024 Encounter Details Date Type Department Care Team ([facility] st Contact Info) Description 01/15/2024 Refill [facility] [address] [place], [place] [phone] Name, MD Miah [address] [place] [address] Other chronic pain Social History Tobacco Use [...] documented as of this encounter Care Teams Sheetrock Applicator Relationship Specialty Start Date End Date Name, MD Miah [address] [place] [address] PCP - General Family Medicine 02/25/16 documented as of this encounter
--- OUTSIDE RECORDS SUMMARY | 2025-03-13 13:00 | XMS_ITS | Encounter Summary ---
Author Organization [employer] Address [address] [place] [address] [address]t [place] [address] Care Team Providers Care Molder Sweep Name Role Phone Name, Miah ZUÑIGA Primary Care Provider [phone] Encounter Details Date Type Department Care Team ([facility] st Contact Info) Description 05/02/2022 Abstract [facility] [address] [place] [address] Jose Fuentes DDS [address] [place] [address] Social History Tobacco Use Types Packs/Day Years [...] on filedocumented in this encounter Care Teams Molder Sweep Relationship Specialty Start Date End Date Name, MD Miah [address] [place] [address] PCP - General Family Medicine 02/25/16 documented as of this encounter
--- OUTSIDE RECORDS SUMMARY | 2025-03-13 13:00 | XMS_ITS | Encounter Summary ---
Author Organization [employer] Address 75 [facility] 7t [place] [address] Care Team Providers Care Violin Mechanic Name Role Phone Name, Miah ZUÑIGA Primary Care Provider [phone] Reason for Visit * Reason Comments Med Refill Encounter Details Date Type Department Care Team ([facility] Contact Info) Description 02/20/2023 Refill [facility] [address] [place], [place] [phone] Name, MD Miah [address] [place] [address] Pain Social History Tobacco Use Types Packs/Day [...] documented as of this encounter Care Teams Violin Mechanic Relationship Specialty Start Date End Date Name, MD Miah [address] [place] [address] PCP - General Family Medicine 02/25/16 documented as of this encounter
--- OUTSIDE RECORDS SUMMARY | 2025-03-13 13:00 | XMS_ITS | Encounter Summary ---
Author Organization [employer] Address [address] [facility] [address]t [place] [address] Care Team Providers Care Aerospace Assembler Name Role Phone Name, Miah ZUÑIGA Primary Care Provider Reason for Visit * Reason Comments Med Refill Encounter Details Date Type Department Care Team ([facility] Contact Info) Description 08/03/2023 Refill [facility] [address] [place] [address] Izabella Haines MD [address] [place] [address] Social History Tobacco Use Types Packs/Day Years [...] documented as of this encounter Care Teams Aerospace Assembler Relationship Specialty Start Date End Date Name, MD Miah [address] [place] [address] PCP - General Family Medicine 02/25/16 documented as of this encounter
== END 2025-03-13 12:26 | disposition home or self-care (01) ==
LOC: HO.HWS 11:22
PROVIDERS: PCP Internal Medicine Geriatric Medicine; Visit Provider Advanced Practice Midwife
DX: N91.2 Amenorrhea, unspecified (principal); Z79.3 Long term (current) use of hormonal contraceptives; N91.1 Secondary amenorrhea; R10.20 Pelvic and perineal pain unspecified side; N88.2 Stricture and stenosis of cervix uteri
CPT/HCPCS: 99213

== ENCOUNTER 2025-03-13 16:37 | Outpatient (REF) | payer MEDICAID, SELFPAY ==
[2025-03-14 10:58] LABS: Bacterial Vaginosis PCR NEGATIVE (Negative); Candida Group PCR NOT DETECTED (Not Detect); Candida glab krusei PCR NOT DETECTED (Not Detect); Trichomonas vaginalis PCR NOT DETECTED (Not Detect)
[2025-03-14 11:30] LABS: CT PCR NOT DETECTED (Not Detect.); NG PCR NOT DETECTED (Not Detect.)
== END 2025-03-13 16:38 | disposition home or self-care (01) ==
LOC: HO.LNP 16:37
PROVIDERS: Visit Provider Advanced Practice Midwife
DX: Z01.419 Encounter for gynecological examination (general) (routine) without abnormal findings (principal); Z20.2 Contact with and (suspected) exposure to infections with a predominantly sexual mode of transmission
CPT/HCPCS: 81515; 87491; 87591